=== PATIENT | male | born 1930 | race Caucasian/White ===

== ENCOUNTER 2017-03-05 11:00 | Inpatient (IN) | payer MEDICAID, OTHER ==
[~2017-03-05] VITALS: Ht 180.3 cm; Wt 99.9 kg
[~2017-03-05 11:00] MED LIST: AMLO5TAB2 PO; CALC625T29 PO; IBUP-30 PO; INSU100I14 SQ; INSU100I29 SQ; LISI10TA2 PO; MULT-35 PO; PEN1DIS.93 MC
--- OUTSIDE RECORDS SUMMARY | 2017-03-05 11:13 | XMS REPORT | Continuity of Care Document ---
Author Author [facility] Organization [facility] Address Unknown Phone Unavailable Allergies Active Description Code Type Severity Reaction Onset Reported/Identified Relationship to Patient Clinical Status Yes No Known Drug Allergies [id number] Drug Allergy Unknown N/A 07/30/2015 Medications There is no data. 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) 08/02/2015 BENJY CAVANAUGH MD, Ot E11.65 TYPE 2 DIABETES MELLITUS WITH HYPERGLYCE 08/02/2015 BENJY CAVANAUGH MD Ot I10 ESSENTIAL (PRIMARY) HYPERTENSION 08/02/2015 BENJY CAVANAUGH MD Ot L03.031 CELLULITIS OF RIGHT TOE 08/02/2015 BENJY CAVANAUGH MD, Ot 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 08/02/2015 BENJY CAVANAUGH MD Ot E11.65 TYPE 2 DIABETES MELLITUS WITH HYPERGLYCE 08/02/2015 BENJY CAVANAUGH MD Ot I10 ESSENTIAL (PRIMARY) HYPERTENSION 08/02/2015 BENJY CAVANAUGH MD Ot L03.031 CELLULITIS OF RIGHT TOE 08/02/2015 BENJY CAVANAUGH MD Ot 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 08/02/2015 BENJY CAVANAUGH MD Ot E11.65 TYPE 2 DIABETES MELLITUS WITH HYPERGLYCE 08/02/2015 BENJY CAVANAUGH MD Ot I10 ESSENTIAL (PRIMARY) HYPERTENSION 08/02/2015 BENJY CAVANAUGH MD Ot L03.031 CELLULITIS OF RIGHT TOE 08/02/2015 BENJY CAVANAUGH MD Ot 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 08/02/2015 BENJY CAVANAUGH MD Ot E11.65 TYPE 2 DIABETES MELLITUS WITH HYPERGLYCE 08/02/2015 BENJY CAVANAUGH MD Ot I10 ESSENTIAL (PRIMARY) HYPERTENSION 08/02/2015 BENJY CAVANAUGH MD Ot L03.031 CELLULITIS OF RIGHT TOE 08/02/2015 BENJY CAVANAUGH MD Ot 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 08/03/2015 BENJY CAVANAUGH MD Ot E11.65 TYPE 2 DIABETES MELLITUS WITH HYPERGLYCE 08/03/2015 BENJY CAVANAUGH MD Ot I10 ESSENTIAL (PRIMARY) HYPERTENSION 08/03/2015 BENJY CAVANAUGH MD Ot L03.031 CELLULITIS OF RIGHT TOE 08/03/2015 BENJY CAVANAUGH MD Ot 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 08/03/2015 BENJY CAVANAUGH MD Ot E11.65 TYPE 2 DIABETES MELLITUS WITH HYPERGLYCE 08/03/2015 BENJY CAVANAUGH MD Ot I10 ESSENTIAL (PRIMARY) HYPERTENSION 08/03/2015 BENJY CAVANAUGH MD Ot L03.031 CELLULITIS OF RIGHT TOE 08/03/2015 BENJY CAVANAUGH MD Ot 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 08/06/2015 BENJY CAVANAUGH MD Ot E11.40 TYPE 2 DIABETES MELLITUS WITH DIABETIC N 08/06/2015 BENJY CAVANAUGH MD Ot E11.65 TYPE 2 DIABETES MELLITUS WITH HYPERGLYCE 08/06/2015 BENJY CAVANAUGH MD Ot I10 ESSENTIAL (PRIMARY) HYPERTENSION 08/06/2015 BENJY CAVANAUGH MD Ot L03.031 CELLULITIS OF RIGHT TOE 08/06/2015 BENJY CAVANAUGH MD Ot 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 08/06/2015 BENJY CAVANAUGH MD Ot M86.171 OTHER ACUTE OSTEOMYELITIS, RIGHT ANKLE A 08/06/2015 BENJY CAVANAUGH MD Ot Z23 ENCOUNTER FOR IMMUNIZATION 08/06/2015 BENJY CAVANAUGH MD Ot 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 Encounters ACCT No. Visit Date/Time Discharge Status Pt. Type Provider Facility Loc./Unit Complaint [id number] 09/19/2015 08:59:00 09/19/2015 12:00:00 DIS Outpatient GODFREY CAIN MD [facility] WOUNDCARE [id number] 07/30/2015 10:18:00 08/06/2015 14:05:00 DIS Inpatient BENJY CAVANAUGH MD [facility] 4TH CELLULITIS R FOOT/LEG; SINUS TACHYCARDIA
--- OUTSIDE RECORDS SUMMARY | 2017-03-05 11:13 | XMS REPORT ---
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 Unknown Non Drug Allergy Nov, Unknown SOCIAL HISTORY No smoking Hx information available PLAN OF CARE VITAL SIGNS Height 71 in 2015-12-10 Weight 195 lbs 2015-12-10 Heart Rate 78 bpm 2015-12-10 Respiratory Rate 18 2015-12-10 BMI 27.19 kg/m2 2015-12-10 Blood pressure systolic 112 mmHg 2015-12-10 Blood pressure diastolic 70 mmHg 2015-12-10 MEDICATIONS Medication Instructions Dosage Frequency Start Date End Date Duration Status Amlodipine Besylate 5 mg Orally Once a day 1 tablet 24h Active Levemir FlexTouch 100 UNIT/ML Subcutaneous Once a day at hs. 20 UNIT Active Lisinopril 20 mg Orally Once a day 1 tablet 24h Active Ibuprofen 400 MG Orally Three times a day NEEDED 1 tablet Active NovoLog Flexpen 100 UNIT/ML Subcutaneous 3 times a day 4 Units 8h Active Multivitamin Adult Active RESULTS Name Result Date Reference Range A1C (IN HOUSE) 2015-12-10 A1C IN HOUSE 6.0 4.3 - 5.6 % Previous A1c n/a Lot [id number] Exp date 09/2017 PROCEDURES Procedure Date Ordered Related Diagnosis Body Site GLYCATED HEMOGLOBIN TEST Dec 10, 2015 Office Visit, Est Pt., Level 3 Dec 10, 2015 IMMUNIZATIONS No Known Immunizations
--- OUTSIDE RECORDS SUMMARY | 2017-03-05 11:13 | XMS REPORT ---
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 Active 012291915 Problem [facility] current use of insulin Z79.4 Active 799339610 Problem Essential hypertension I10 Active 72178273 ALLERGIES No Known Allergies SOCIAL HISTORY Never Assessed PLAN OF CARE Activity Details Follow Up 6 Months Reason: VITAL SIGNS Height 71 in 2016-04-18 Weight 196.6 lbs 2016-04-18 Temperature 97.8 degrees Fahrenheit 2016-04-18 Heart Rate 80 bpm 2016-04-18 Respiratory Rate 18 2016-04-18 BMI 27.42 kg/m2 2016-04-18 Blood pressure systolic 150 mmHg 2016-04-18 Blood pressure diastolic 70 mmHg 2016-04-18 MEDICATIONS Medication Instructions Dosage Frequency Start Date End Date Duration Status Lisinopril 20 mg Orally Once a day 1 tablet 24h Active Amlodipine Besylate 5 mg Orally Once a day 1 tablet 24h Active Multivitamin Adult Active Ibuprofen 400 MG Orally Three times a day NEEDED 1 tablet Active Levemir FlexTouch 100 UNIT/ML Subcutaneous Once a day at hs. 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
--- OUTSIDE RECORDS SUMMARY | 2017-03-05 11:13 | XMS REPORT ---
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 Active 346321840 Problem intermediate current use of insulin Z79.4 Active 458109647 Problem Essential hypertension I10 Active 25863358 ALLERGIES No Information SOCIAL HISTORY Never Assessed PLAN OF CARE VITAL SIGNS MEDICATIONS Medication Instructions Dosage Frequency Start Date End Date Duration Status Insulin Pen Needle 30G X 8 MM as directed July, Active RESULTS No Results PROCEDURES No Known procedures IMMUNIZATIONS No Known Immunizations MEDICAL (GENERAL) HISTORY Type Description Date Medical History Hypertension Medical History Type II Diabetes Surgical History 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
[2017-03-05] MEDS ORDERED: NS IV 1000 ML 1,000 ML IV ONE (11:36)
[2017-03-05 11:51] LABS: BASOPHILS # (AUTO) 0.1 10^3/uL (0.0-0.1); BASOPHILS % (AUTO) 0 % (0-10); EOSINOPHILS % (AUTO) 0 % (0-10); LYMPHOCYTES # (AUTO) 0.9 X 10^3 (1.0-4.0); LYMPHOCYTES % (AUTO) 6 % (12-44); MEAN CORPUSCULAR HEMOGLOBIN 26 PG (25-34); MEAN CORPUSCULAR HGB CONC 33 G/DL (32-36); MEAN CORPUSCULAR VOLUME 79 FL (80-99); MEAN PLATELET VOLUME 11.7 FL (7.4-10.4); MONOCYTES # (AUTO) 2.1 X 10^3 (0.0-1.0); MONOCYTES % (AUTO) 14 % (0-12); NEUTROPHILS # (AUTO) 12.6 X 10^3 (1.8-7.8); NEUTROPHILS % (AUTO) 80 % (42-75); PLATELET COUNT 278 10^3/uL (130-400); RED BLOOD COUNT 3.84 10^6/uL (4.35-5.85); RED CELL DISTRIBUTION WIDTH 20.8 % (10.0-14.5); WHITE BLOOD COUNT 15.7 10^3/uL (4.3-11.0)
[2017-03-05] MEDS ORDERED: LISI-552 PO ×2 (12:01→16:04)
[2017-03-05] MEDS ORDERED: FOLI1TAB24 PO (12:01)
[2017-03-05] MEDS ORDERED: FERR325T24 PO (12:01)
[2017-03-05] MEDS ORDERED: INSU100I14 SQ (12:01)
[2017-03-05 12:03] LABS: INR 1.2 (0.8-1.4); PROTHROMBIN TIME PATIENT 15.6 SEC (12.2-14.7)
[2017-03-05 12:06] LABS: ANISOCYTOSIS MARKED; BAND NEUTROPHILS 4 %; BASOPHILS % (MANUAL) 0 %; EOSINOPHILS % (MANUAL) 0 %; HYPOCHROMASIA SLIGHT; LYMPHOCYTES % (MANUAL) 2 %; NEUTROPHILS % (MANUAL) 78 %
[2017-03-05 12:09] LABS: ALANINE AMINOTRANSFERASE 36 U/L (0-55); ALBUMIN 3.5 GM/DL (3.2-4.5); AMYLASE 50 U/L (25-125); ANION GAP 14 MMOL/L (5-14); ASPARTATE AMINO TRANSFERASE 45 U/L (5-34); BILIRUBIN,TOTAL 0.7 MG/DL (0.1-1.0); BLOOD UREA NITROGEN 68 MG/DL (7-18); BUN/CREATININE RATIO 25; CALCIUM 8.3 MG/DL (8.5-10.1); CARBON DIOXIDE 17 MMOL/L (21-32); CHLORIDE 104 MMOL/L (98-107); CREATININE SERUM 2.71 MG/DL (0.60-1.30); GFR ESTIMATED 22; GLUCOSE 98 MG/DL (70-105); LIPASE 13 U/L (8-78); MAGNESIUM 2.2 MG/DL (1.8-2.4); POTASSIUM 3.5 MMOL/L (3.6-5.0); SODIUM 135 MMOL/L (135-145); TOTAL PROTEIN 7.3 GM/DL (6.4-8.2)
--- NOTE | 2017-03-05 12:20 | Diagnostic Imaging Report ---
INDICATION: Generalized weakness. EXAMINATION: Frontal chest obtained at 12:09 p.m. COMPARISON: 07/30/2015. FINDINGS: There is prominent cardiomegaly. There is central vascular prominence. There is some infiltrate in the right medial base. Left lung is otherwise clear. There is no pneumothorax or pleural fluid. Stable calcified granuloma in right midlung. IMPRESSION: Cardiomegaly and central vascular prominence. Mild infiltrate in right medial base. Followup is recommended. Dictated by: Dictated on workstation # [id number]
[2017-03-05 12:29] LABS: TROPONIN I < 0.30 NG/ML (<0.30)
[2017-03-05 12:51] LABS: BILIRUBIN,URINE NEGATIVE (NEGATIVE); KETONES,URINE 1+ (NEGATIVE); LEUKOCYTE ESTERASE ,URINE 3+ (NEGATIVE); NITRITE,URINE POSITIVE (NEGATIVE); PH,URINE 5 (5-9); PROTEIN,URINE 3+ (NEGATIVE); UROBILINOGEN,URINE NORMAL (NORMAL)
[2017-03-05 12:59] LABS: WBC,URINE TNTC /HPF
--- NOTE | 2017-03-05 13:14 | ED General ---
General Chief Complaint: Abdominal/GI Problems Stated Complaint: IRON BUILDUP Nursing Triage Note: pt reports diahrrea x 3 days before thursday. pt reprots he took antidiahreal medicine on thursday and the diahrrea stopped. pt reprots he has not been taking his insulin, iron, and ferrous sulfate. pt reports he has decreased appetite. Nursing Sepsis Screen: No Definite Risk Source of Information: Patient (LIMITED HISTORIAN, SOMEWHAT POOR MEMORY), Family (SECOND COUSIN IS WITH PT--HIS ONLY RELATIVE ) History of Present Illness Time Seen by Provider: 11:29 Initial Comments PT ARRIVES VIA POV FROM HOME--LIVES ALONE PT STATES "I'M NOT FEELING THAT GOOD" "I GOT THE BLAH'S" "MY MOUTH IS DRY" PT STATES HE HAS BEEN FEELING THIS WAY FOR 3 DAYS OR MORE--NOT SURE HOW LONG NO PAIN ANYWHERE NO NAUSEA/VOMITING NO FEVER/SWEATS/CHILLS HAS HAD GENERALIZED WEAKNESS NO COUGH, CHEST PAIN OR SHORTNESS OF BREATH PT HAS URINARY INCONTINENCE--UNSURE HOW MUCH OR HOW OFTEN HE HAS BEEN URINATING- -WEARS ADULT DIAPERS HAD 1/2 ARBY[employer]S SANDWICH YESTERDAY, OTHERWISE NO OTHER INTAKE SINCE THEN, AND NO SIGNIFICANT FLUID INTAKE EITHER. COUSIN STATES SHE SAW HIM ON THURSDAY,AND AT THAT TIME HE TOLD HER THAT HE HAD DIARRHEA FOR THE LAST 2 DAYS, PT DOES NOT RECALL HOW LONG HE HAS HAD DIARRHEA- STATES HIS STOOL WAS LOOSE THE LAST TIME HE WENT BUT NOT SURE WHEN THAT WAS. TOOK AN OVER THE COUNTER ANTIDIARRHEA MEDICATION X 1 DOSE --POSSIBLY A COUPLE OF DAYS AGO, AGAIN IS NOT SURE WHEN THAT WAS. PT STATES 8 DAYS AGO, HE WAS STARTED ON FOLIC ACID AND IRON BY THE CT. HAS NOT TAKEN ANY TODAY, AND DOES NOT THINK HE HAS TAKEN ANY FOR A FEW DAYS. PCP: DR. RIVERA AT [facility], ALSO GOES TO CT Allergies and Home Medications Allergies Coded Allergies: No Known Drug Allergies (Unverified , 03/05/17) Home Medications Acetaminophen 500 Mg Tablet, 1,000 MG PO TID, (Reported) TAKES 2 (500MG) TABLETS Amlodipine Besylate 5 Mg Tablet, 5 MG PO DAILY, (Reported) Ibuprofen 200 Mg Tablet, 400 MG PO HS, (Reported) TAKES 2 (200MG) TABLETS Ibuprofen 200 Mg Tablet, 200 MG PO 0800,1700, (Reported) Insulin Aspart 300 Units/3 Ml Solution, 4 UNITS SQ AC, (Reported) Insulin Detemir 100 Unit/1 Ml Insuln.pen, 20 UNIT SQ HS, (Reported) Lisinopril 20 Mg Tablet, 20 MG PO DAILY, (Reported) Loperamide HCl 2 Mg Tablet, PO UD PRN for DIARRHEA, (Reported) Multivits-Minerals/FA/Lycopene 1 Each Tablet, 0.5 TAB PO BID, (Reported) Constitutional: see HPI, No chills, No diaphoresis, No dizziness, No fever, malaise, weakness EENTM: no symptoms reported Respiratory: no symptoms reported, No cough, No short of breath Cardiovascular: no symptoms reported, No chest pain, No edema, No palpitations , No syncope, No vascular heart diseas Gastrointestinal: see HPI, No abdominal pain, No constipation, No diarrhea, loss of appetite, No nausea, No vomiting Genitourinary: see HPI, No dysuria, incontinence Musculoskeletal: no symptoms reported Skin: no symptoms reported Psychiatric/Neurological: No Symptoms Reported, Denies Headache, Denies Numbness, Denies Paresthesia, Denies Tingling, Denies Weakness Hematologic/Lymphatic: No Symptoms Reported Immunological/Allergic: no symptoms reported Past Dprcahb-Wtoblo-Wbgfmr Hx Patient Social History Alcohol Use: Denies Use Recreational Drug Use: No Smoking Status: Former Smoker Type Used: Cigarettes Former Smoker, Quit: Mar 02, 1984 Recent Foreign Travel: No Contact w/Someone Who Travel: No Recent Infectious Disease Expo: No Physical Abuse: No Sexual Abuse: No Mistreated: No Fear: No Surgeries 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) Surgeries: Adenoidectomy, Amputation, Orthopedic, Tonsillectomy Respiratory History of Respiratory Disorde: No Cardiovascular History of Cardiac Disorders: Yes Cardiac Disorders: Hypertension Neurological History of Neurological Disord: No Reproductive System Hx Reproductive Disorders: No Genitourinary History of Genitourinary Disor: No Gastrointestinal History of Gastrointestinal Di: No Musculoskeletal History of 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) Endocrine History of Endocrine Disorders: Yes Endocrine Disorders: Diabetes, Insulin dep HEENT History of HEENT Disorders: No Cancer History of Cancer: No Psychosocial History of Psychiatric Problem: No Suicide Risk Score: 0 Integumentary History of Skin or Integumenta: No Blood Transfusions History of Blood Disorders: No Family Medical History Family Medial History: Patient reports no known family medical history. Physical Exam Vital Signs Vital Sign - Last 12Hours 03/05/17 03/05/17 11:46 15:11 Temp 97.1 Pulse 121 Resp 20 B/P (MAP) 127/69 (88) Pulse Ox 94 FiO2 28 Capillary Refill : Less Than 3 Seconds General Appearance: No Apparent Distress, Obese HEENT: PERRL/EOMI, Other (VERY DRY ORAL MUCOSA) Neck: Normal Inspection Respiratory: Normal Breath Sounds, No Accessory Muscle Use, No Respiratory Distress Cardiovascular: No JVD, Systolic Murmur (3/6), Irregularly Irregular (FREQUENT PAC'S AND PVC'S ON MONITOR, WITH NSR), Tachycardia (IN 120'S ) Gastrointestinal: Normal Bowel Sounds, No Organomegaly, No Pulsatile Mass, Non Tender, Soft Back: No CVA Tenderness Extremity: Normal Range of Motion, Non Tender, No Calf Tenderness, No Pedal Edema Neurologic/Psychiatric: Alert, Oriented x3 (BUT LIMITED MEMORY), No Motor/ Sensory Deficits, Normal Mood/Affect, studio hand II-XII Norm as Tested Skin: Normal Color, Warm/Dry Focused Exam Evaluation Lactate Level Laboratory Tests 03/05/17 17:35: Lactic Acid Level 0.76 Lactic Acid Level Laboratory Tests Test 03/05/17 17:35 Lactic Acid Level 0.76 MMOL/L (0.50-2.00) Progress/Results/Core Measures Suspected Sepsis Recent Fever Within 48 Hours: No Infection Criteria Present: None New/Unexplained Altered Menta: No Sepsis Screen: No Definite Risk Sepsis Diagnosis: SIRS Temperature:97.1 Pulse: 121 Respiratory Rate: 20 Laboratory Tests 03/05/17 11:39: White Blood Count 15.7H Blood Pressure 127 /69 Mean: 88 Laboratory Tests 03/05/17 17:35: Lactic Acid Level 0.76 Laboratory Tests 03/05/17 11:39: Creatinine 2.71H, INR Comment 1.2, Platelet Count 278, Total Bilirubin 0.7 Results/Orders Lab Results Laboratory Tests Test 03/05/17 11:39 03/05/17 12:40 03/05/17 17:35 Range/Units White Blood Count 15.7 H 4.3-11.0 10^3/uL Red Blood Count 3.84 L 4.35-5.85 10^6/uL Hemoglobin 9.9 L 13.3-17.7 G/DL Hematocrit 30 L 40-54 % Mean Corpuscular Volume 79 L 80-99 FL Mean Corpuscular Hemoglobin 26 25-34 PG Mean Corpuscular Hemoglobin Concent 33 32-36 G/DL Red Cell Distribution Width 20.8 H 10.0-14.5 % Platelet Count 278 130-400 10^3/uL Mean Platelet Volume 11.7 H 7.4-10.4 FL Neutrophils (%) (Auto) 80 H 42-75 % Lymphocytes (%) (Auto) 6 L 12-44 % Monocytes (%) (Auto) 14 H 0-12 % Eosinophils (%) (Auto) 0 0-10 % Basophils (%) (Auto) 0 0-10 % Neutrophils # (Auto) 12.6 H 1.8-7.8 X 10^3 Lymphocytes # (Auto) 0.9 L 1.0-4.0 X 10^3 Monocytes # (Auto) 2.1 H 0.0-1.0 X 10^3 Eosinophils # (Auto) 0.0 0.0-0.3 10^3/uL Basophils # (Auto) 0.1 0.0-0.1 10^3/uL Neutrophils % (Manual) 78 % Lymphocytes % (Manual) 2 % Monocytes % (Manual) 16 % Eosinophils % (Manual) 0 % Basophils % (Manual) 0 % Band Neutrophils 4 % Nucleated Red Blood Cells 1 Hypochromasia SLIGHT Anisocytosis MARKED Prothrombin Time 15.6 H 12.2-14.7 SEC INR Comment 1.2 0.8-1.4 Activated Partial Thromboplast Time 40 H 24-35 SEC Sodium Level 135 135-145 MMOL/L Potassium Level 3.5 L 3.6-5.0 MMOL/L Chloride Level 104 98-107 MMOL/L Carbon Dioxide Level 17 L 21-32 MMOL/L Anion Gap 14 5-14 MMOL/L Blood Urea Nitrogen 68 H 7-18 MG/DL Creatinine 2.71 H 0.60-1.30 MG/DL Estimat Glomerular Filtration Rate 22 BUN/Creatinine Ratio 25 Glucose Level 98 70-105 MG/DL Glucometer 100 70-110 MG/DL Calcium Level 8.3 L 8.5-10.1 MG/DL Magnesium Level 2.2 1.8-2.4 MG/DL Total Bilirubin 0.7 0.1-1.0 MG/DL Aspartate Amino Transf (AST/SGOT) 45 H 5-34 U/L Alanine Aminotransferase (ALT/SGPT) 36 0-55 U/L Alkaline Phosphatase 27 L 40-136 U/L Troponin I < 0.30 <0.30 NG/ML Total Protein 7.3 6.4-8.2 GM/DL Albumin 3.5 3.2-4.5 GM/DL Amylase Level 50 25-125 U/L Lipase 13 8-78 U/L TSH [place] Testing 2.81 0.35-4.94 UIU/ML Urine Color YELLOW Urine Clarity VERY CLOUDY H Urine pH 5 5-9 Urine Specific [place] 1.015 L 1.016-1.022 Urine Protein 3+ H NEGATIVE Urine Glucose (UA) NEGATIVE NEGATIVE Urine Ketones 1+ H NEGATIVE Urine Nitrite POSITIVE H NEGATIVE Urine Bilirubin NEGATIVE NEGATIVE Urine Urobilinogen NORMAL NORMAL MG/DL Urine Leukocyte Esterase 3+ H NEGATIVE Urine RBC (Auto) 4+ H NEGATIVE Urine RBC 2-5 H /HPF Urine WBC TNTC H /HPF Urine Squamous Epithelial Cells NONE /HPF Urine Crystals NONE /LPF Urine Bacteria LARGE H /HPF Urine Casts NONE /LPF Urine Mucus NEGATIVE /LPF Urine Culture Indicated YES Lactic Acid Level 0.76 0.50-2.00 MMOL/L My Orders Orders - MARIETTA THOMAS DO Accucheck Stat ONCE (03/05/17 11:36) Saline Lock/Iv-Start (03/05/17 11:36) Ekg Tracing (03/05/17 11:36) O2 (03/05/17 11:36) Monitor-Rhythm Ecg Trace Only (03/05/17 11:36) Amylase (03/05/17 11:36) Cbc With Automated Diff (03/05/17 11:36) Comprehensive Metabolic Panel (03/05/17 11:36) Lipase (03/05/17 11:36) Magnesium (03/05/17 11:36) Protime With Inr (03/05/17 11:36) Partial Thromboplastin Time (03/05/17 11:36) Thyroid Analyzer (03/05/17 11:36) Troponin I (03/05/17 11:36) Ua Culture If Indicated (03/05/17 11:36) Chest 1 View, Ap/Pa Only (03/05/17 11:36) Saline Lock/Iv-Start (03/05/17 11:36) Ns Iv 1000 Ml (Sodium Chloride 0.9%) (03/05/17 11:36) Catheter(Urinary) Insert & Ass 03,15 (03/05/17 11:57) Manual Differential (03/05/17 11:39) Ct Head Wo (03/05/17 12:10) Urine Culture (03/05/17 12:40) 1/2 Ns W/Kcl 20 Meq/L (0.45% Sodium Chlo (03/05/17 13:15) Ceftriaxone Injection (Rocephin Injectio (03/05/17 13:45) Medications Given in ED Current Medications Medications Dose Ordered Sig/Janeen Route Start Time Stop Time Status Last Admin Dose Admin Sodium Chloride 1,000 ml @ 0 mls/hr Q0M ONCE IV 03/05/17 11:36 03/05/17 11:39 DC 03/05/17 11:45 0 MLS/HR Vital Signs/I&O Vital Sign - Last 12Hours 03/05/17 03/05/17 03/05/17 03/05/17 11:46 14:42 14:45 14:45 Temp 97.1 101.9 Pulse 121 117 126 Resp 20 18 22 B/P (MAP) 127/69 (88) 152/66 (94) Pulse Ox 94 16 97 O2 Delivery Nasal Cannula Nasal Cannula O2 Flow Rate 2.00 2.00 03/05/17 03/05/17 03/05/17 03/05/17 15:11 15:47 16:00 16:13 Temp 101.9 102.6 102.7 Pulse 126 113 Resp 22 B/P (MAP) 131/59 (83) Pulse Ox 97 96 O2 Delivery Nasal Cannula O2 Flow Rate 2.00 FiO2 28 03/05/17 03/05/17 03/05/17 03/05/17 16:13 16:38 16:43 17:00 Temp 102.7 102.0 101.9 Pulse 66 105 Resp 22 B/P (MAP) 112/55 (74) Pulse Ox 94 O2 Delivery Nasal Cannula O2 Flow Rate 2.00 03/05/17 03/05/17 03/05/17 03/05/17 17:45 18:39 19:12 19:40 Temp 100.9 100.3 Pulse 100 Pulse Ox 96 O2 Delivery Nasal Cannula O2 Flow Rate 2.00 Capillary Refill : Less Than 3 Seconds Blood Pressure Mean: 88 Point of Care Testing Finger Stick Blood Glucose: 100 Progress Note : Progress Note NO DETERIORATION IN PT'S CONDITION DURING ER STAY HEART RATE DOWN, BP REMAINED STABLE O2 SATS 92% ON ROOM AIR ON ARRIVAL--UP TO 94% ON 2L/NC Diagnostic Imaging Comments CXR--RIGHT MID LUNG INFILTRATE, PER RADIOLOGIST REPORT @ 1313 CT HEAD--NO ACUTE PROCESS, PER RADIOLOGIST REPORT AT 1331 Reviewed: Reviewed by Me Departure Communication (Admissions) Progress Notes 1335--MESSAGE RELAYED TO DR. MARTIN, WILL CALL BACK 1345--SPOKE WITH DR. MARTIN, ACCEPTS PT FOR ADMIT Impression Impression: Primary Impression: RLL pneumonia Additional Impressions: Dehydration Anemia Sepsis Disposition: ADMITTED INPATIENT Condition: Improved Admissions Decision to Admit Reason: Admit from ER (General) Decision to Admit/Date: Mar 05, 2017 Time/Decision to Admit Time: 13:35 Departure-Patient Inst. Referrals: DEJAH RIVERA MD (PCP) Primary Care Physician MARIETTA THOMAS DO Mar 05, 2017 13:14
[2017-03-05] MEDS ORDERED: 1/2 NS W/KCL 20 MEQ/L 1,000 ML IV SCH (13:15)
--- NOTE | 2017-03-05 13:15 | Diagnostic Imaging Report ---
PROCEDURE: CT head without contrast. TECHNIQUE: Multiple contiguous axial images were obtained through the brain without the use of intravenous contrast. INDICATION: Decreased appetite. FINDINGS: There is no intracranial hemorrhage, edema or mass effect. There is periventricular and deep white matter hypodensities compatible with chronic microvascular ischemic changes. No hydrocephalus. No extra-axial fluid collection seen. The calvarium appears grossly unremarkable. The orbits appear symmetric. There is a partial opacification of posterior right ethmoidal air cells. IMPRESSION: No acute process. Dictated by: Dictated on workstation # [id number]
[2017-03-05] MEDS ORDERED: cefTRIAXone INJECTION 1,000 MG in NS (IVPB) 50 ML IV ONE (13:45)
--- OUTSIDE RECORDS SUMMARY | 2017-03-05 14:06 | XMS REPORT | Continuity of Care Document ---
Author Author [facility] Organization [facility] Address Unknown Phone Unavailable Allergies Active Description Code Type Severity Reaction Onset Reported/Identified Relationship to Patient Clinical Status Yes No Known Drug Allergies [id number] Drug Allergy Unknown N/A 07/30/2015 Medications There [...] DIABETES MELLITUS WITH DIABETIC N 08/06/2015 BENJY CAVAANUGH MD Ot E11.65 TYPE 2 DIABETES MELLITUS [...] IMMUNIZATION 08/06/2015 BENJY CAVANAUGH MD Ot Z79.4 SOLVENT PLANT TREATER (CURRENT) USE OF INSULIN 09/19/2015 GODFREY CAIN [...] Procedures Code Description Performed By Performed On [id number] DETACHMENT AT RIGHT 3RD TOE, COMPLETE, O 08/03/2015 Results Test Result Range Capillary blood glucose measurement by glucometer (mass/volume) - 03/05/17 11: 39 Capillary blood glucose measurement by glucometer (mass/volume) 100 mg/dL 70-110 PT panel in platelet poor plasma by coagulation assay - 03/05/17 11:39 Prothrombin time (PT) in platelet poor plasma by coagulation assay 15.6 s 12.2-14.7 INR in platelet poor plasma or blood by coagulation assay 1.2 0.8-1.4 Activated partial thromboplastin time (aPTT) in platelet poor plasma bycoagulation assay - 03/05/17 11:39 Activated partial thromboplastin time (aPTT) in platelet poor plasma bycoagulation assay 40 s 24-35 Complete blood count (CBC) with automated white blood cell (WBC) differential - 03/05/17 11:39 Blood leukocytes automated count (number/volume) 15.7 10*3/uL 4.3-11.0 Blood erythrocytes automated count (number/volume) 3.84 10*6/uL 4.35-5.85 Venous blood hemoglobin measurement (mass/volume) 9.9 g/dL 13.3-17.7 Blood hematocrit (volume fraction) 30 % 40-54 Automated erythrocyte mean corpuscular volume 79 [foz_us] 80-99 Automated erythrocyte mean corpuscular hemoglobin (mass per erythrocyte) 26 pg 25-34 Automated erythrocyte mean corpuscular hemoglobin concentration measurement ( mass/volume) 33 g/dL 32-36 Automated erythrocyte distribution width ratio 20.8 % 10.0-14.5 Automated blood platelet count (count/volume) 278 10*3/uL 130-400 Automated blood platelet mean volume measurement 11.7 [foz_us] 7.4-10.4 Automated blood neutrophils/100 leukocytes 80 % 42-75 Automated blood lymphocytes/100 leukocytes 6 % 12-44 Blood monocytes/100 leukocytes 14 % 0-12 Automated blood eosinophils/100 leukocytes 0 % 0-10 Automated blood basophils/100 leukocytes 0 % 0-10 Blood neutrophils automated count (number/volume) 12.6 10*3 1.8-7.8 Blood lymphocytes automated count (number/volume) 0.9 10*3 1.0-4.0 Blood monocytes automated count (number/volume) 2.1 10*3 0.0-1.0 Automated eosinophil count 0.0 10*3/uL 0.0-0.3 Automated blood basophil count (count/volume) 0.1 10*3/uL 0.0-0.1 Blood manual differential performed detection - 03/05/17 11:39 Blood monocytes/100 leukocytes 16 % NRG Manual blood segmented neutrophils/100 leukocytes 78 % NRG Blood band neutrophils/100 leukocytes 4 % NRG Manual blood lymphocytes/100 leukocytes 2 % NRG Manual eosinophils/100 leukocytes in nose 0 % NRG Manual blood basophils/100 leukocytes 0 % NRG Blood anisocytosis detection by light microscopy MARKED NRG Manual blood nucleated erythrocytes/100 leukocytes ratio 1 NRG Blood hypochromia detection by light microscopy SLIGHT NRG Comprehensive metabolic panel - 03/05/17 11:39 Serum or plasma sodium measurement (moles/volume) 135 mmol/L 135-145 Serum or plasma potassium measurement (moles/volume) 3.5 mmol/L 3.6-5.0 Serum or plasma chloride measurement (moles/volume) 104 mmol/L 98-107 Carbon dioxide 17 mmol/L 21-32 Serum or plasma anion gap determination (moles/volume) 14 mmol/L 5-14 Serum or plasma urea nitrogen measurement (mass/volume) 68 mg/dL 7-18 Serum or plasma creatinine measurement (mass/volume) 2.71 mg/dL 0.60-1.30 Serum or plasma urea nitrogen/creatinine mass ratio 25 NRG Serum or plasma creatinine measurement with calculation of estimated glomerular filtration rate 22 NRG Serum or plasma glucose measurement (mass/volume) 98 mg/dL 70-105 Serum or plasma calcium measurement (mass/volume) 8.3 mg/dL 8.5-10.1 Serum or plasma total bilirubin measurement (mass/volume) 0.7 mg/dL 0.1-1.0 Serum or plasma alkaline phosphatase measurement (enzymatic activity/volume) 27 U/L 40-136 Serum or plasma aspartate aminotransferase measurement (enzymatic activity/ volume) 45 U/L 5-34 Serum or plasma alanine aminotransferase measurement (enzymatic activity/volume ) 36 U/L 0-55 Serum or plasma protein measurement (mass/volume) 7.3 g/dL 6.4-8.2 Serum or plasma albumin measurement (mass/volume) 3.5 g/dL 3.2-4.5 Magnesium - 03/05/17 11:39 Magnesium 2.2 mg/dL 1.8-2.4 Serum or plasma troponin i.cardiac measurement (mass/volume) - 03/05/17 11:39 Serum or plasma troponin i.cardiac measurement (mass/volume) < ng/ mL <0.30 Serum or plasma amylase measurement (enzymatic activity/volume) - 03/05/17 11: 39 Serum or plasma amylase measurement (enzymatic activity/volume) 50 U /L 25-125 Lipase - 03/05/17 11:39 Lipase 13 U/L 8-78 Serum or plasma thyrotropin measurement by detection limit <=0.05 miu/l (units/ volume) - 03/05/17 11:39 Serum or plasma thyrotropin measurement by detection limit <=0.05 miu/l (units/ volume) 2.81 u[iU]/mL 0.35-4.94 Complete urinalysis with reflex to culture - 03/05/17 12:40 Urine color determination YELLOW NRG Urine clarity determination VERY CLOUDY NRG Urine pH measurement by test strip 5 5-9 Specific gravity of urine by test strip 1.015 1.016- 1.022 Urine protein assay by test strip, semi-quantitative 3+ NEGATIVE Urine glucose detection by automated test strip NEGATIVE NEGATIVE Erythrocytes detection in urine sediment by light microscopy 4+ NEGATIVE Urine ketones detection by automated test strip 1+ NEGATIVE Urine nitrite detection by test strip POSITIVE NEGATIVE Urine total bilirubin detection by test strip NEGATIVE NEGATIVE Urine urobilinogen measurement by automated test strip (mass/volume) NORMAL NORMAL Urine leukocyte esterase detection by dipstick 3+ NEGATIVE Automated urine sediment erythrocyte count by microscopy (number/high power field) [HPF] NRG Automated urine sediment leukocyte count by microscopy (number/high power field ) TNTC NRG Bacteria detection in urine sediment by light microscopy LARGE NRG Squamous epithelial cells detection in urine sediment by light microscopy NONE NRG Crystals detection in urine sediment by light microscopy NONE NRG Casts detection in urine sediment by light microscopy NONE NRG Mucus detection in urine sediment by light microscopy NEGATIVE NRG Complete urinalysis with reflex to culture YES NRG Encounters ACCT No. Visit Date/Time Discharge Status Pt. Type Provider Facility Loc./Unit Complaint [id number] 09/19/2015 08:59:00 09/19/2015 12:00:00 DIS Outpatient PAYTON LONG, GODFREY Ibrahim [facility] WOUNDCARE [id number] 07/30/2015 10:18:00 08/06/2015 14:05:00 DIS Inpatient MAO LONG, BENJY Gonzalez [facility] 4TH CELLULITIS R FOOT/LEG; SINUS TACHYCARDIA [id number] 03/05/2017 11:49:00 Document Registration
[2017-03-05 14:45] VITALS: BP 152/66
[2017-03-05 15:11] VITALS: BP 152/66
[2017-03-05] MEDS ORDERED: CATHETER FLUSH 10 ML SYR IV PRN (15:15)
[2017-03-05] MEDS ORDERED: RT-ALBUTEROL/IPRATROPIUM 3 ML (DUONEB) VIAL INH PRN (15:15)
[2017-03-05] MEDS ORDERED: AZITHROMYCIN 500 MG/NS 250 ML IVPB IV NR ×2 (15:15)
[2017-03-05] MEDS: D5 1/2 NS W/KCL 20 MEQ/L 1,000 ML IV SCH ×2 (15:26→22:49)
[2017-03-05] MEDS: ACETAMINOPHEN 325 MG TABLET/CAPLET (TYLENOL) PO PRN ×2 (15:47→22:09)
[2017-03-05 16:00] VITALS: BP 131/59
[2017-03-05] MEDS ORDERED: AMLO5TAB2 PO (16:04)
[2017-03-05] MEDS ORDERED: INSU100I29 SQ (16:04)
[2017-03-05] MEDS ORDERED: ACET-2267 PO (16:04)
[2017-03-05] MEDS ORDERED: MULT-851 PO (16:05)
[2017-03-05] MEDS ORDERED: IBUP-30 PO (16:05)
[2017-03-05] MEDS ORDERED: LOPE2TAB34 PO (16:05)
[2017-03-05 17:00] VITALS: BP 112/55
[2017-03-05] MEDS: RT-ALBUTEROL/IPRATROPIUM 3 ML (DUONEB) VIAL INH SCH ×2 (19:39→22:03)
[2017-03-05 20:00] VITALS: BP 125/58
[2017-03-05 22:00] VITALS: BP 164/70
[2017-03-05] MEDS ORDERED: IBUPROFEN TABLET 200 MG TAB PO ONE (22:30)
[2017-03-06] VITALS (18 sets, daily range): BP systolic 93–139; BP diastolic 47–67
[2017-03-06] MEDS: RT-ALBUTEROL/IPRATROPIUM 3 ML (DUONEB) VIAL INH SCH ×2 (01:44→07:17)
[2017-03-06] MEDS: D5 1/2 NS W/KCL 20 MEQ/L 1,000 ML IV SCH (05:39)
[2017-03-06 07:45] LABS: BASOPHILS # (AUTO) 0.1 10^3/uL (0.0-0.1); BASOPHILS % (AUTO) 1 % (0-10); EOSINOPHILS % (AUTO) 0 % (0-10); LYMPHOCYTES # (AUTO) 0.9 X 10^3 (1.0-4.0); LYMPHOCYTES % (AUTO) 6 % (12-44); MEAN CORPUSCULAR HEMOGLOBIN 26 PG (25-34); MEAN CORPUSCULAR HGB CONC 31 G/DL (32-36); MEAN CORPUSCULAR VOLUME 81 FL (80-99); MEAN PLATELET VOLUME 12.5 FL (7.4-10.4); MONOCYTES # (AUTO) 1.4 X 10^3 (0.0-1.0); MONOCYTES % (AUTO) 9 % (0-12); NEUTROPHILS # (AUTO) 13.6 X 10^3 (1.8-7.8); NEUTROPHILS % (AUTO) 85 % (42-75); PLATELET COUNT 245 10^3/uL (130-400); RED BLOOD COUNT 3.22 10^6/uL (4.35-5.85); RED CELL DISTRIBUTION WIDTH 21.4 % (10.0-14.5); WHITE BLOOD COUNT 15.9 10^3/uL (4.3-11.0)
[2017-03-06 07:59] LABS: ALBUMIN 2.9 GM/DL (3.2-4.5); BILIRUBIN,TOTAL 0.5 MG/DL (0.1-1.0); CALCIUM 7.1 MG/DL (8.5-10.1); CREATININE SERUM 2.7 MG/DL (0.60-1.30); POTASSIUM 3.5 MMOL/L (3.6-5.0)
[2017-03-06] MEDS ORDERED: AZITHROMYCIN 250 MG TAB (ZITHROMAX) PO SCH (09:00)
[2017-03-06] MEDS ORDERED: RT-ALBUTEROL SULF 2.5 MG/3 ML PRE-MIX VIAL INH SCH (09:45)
[2017-03-06] MEDS ORDERED: PIPERACILLIN SODIUM/TAZOBACTAM 4.5 GM in NS (IVPB) 100 ML IV NR (11:02)
--- NOTE | 2017-03-06 11:03 | History & Physical-Hospitalist ---
HPI History of Present Illness: HPI/Chief Complaint CC: Wheezing and unable to eat and drink HPI: This is an 86-year-old white male clinic patient a [facility] with a past medical history of diabetes and hypertension the presents to the emergency room after unable to tolerate oral intake for the past several days with nausea. He was found to have creatinine of 2.7 and dehydrated on clinical exam and bilateral pneumonia so he was placed on Rocephin and Zithromax IV fluids and oxygen supplementation along with nebulizer treatments and was admitted to fourth floor. I visited with the patient this morning he is requiring Vapotherm and wheezing on exam and just overall appears to be declining so as a precaution I am sending him up to cardiac stepdown unit obtaining ABG repeat chest x-ray checking BNP ordering echocardiogram and consulting cardiology. I have held all of his home medications because of mild hypotension that I had given IV fluid resuscitation for last night. Overall he appears to have a very poor prognosis just overall decline status and we are obtaining his living well and whether or not he is a full code or DO NOT RESUSCITATE patient. Source: patient Exam Limitations: clinical condition Date Seen 03/06/17 Time Seen by Provider: 09:45 Attending Physician Chikis Todd DO PCP Nehemiah Lopez MD Referring Physician Date of Admission Mar 05, 2017 at 13:35 Home Medications & Allergies Home Medications Reviewed patient Home Medication Reconciliation Form Allergies Allergies Coded Allergies No Known Drug Allergies (Efrdrgqjbr09/21/17) Past Poyjbnm-Qorhbe-Rrqrxs Hx Patient Social History Marrital Status: single Employed/Student: retired Alcohol Use: Denies Use Recreational Drug Use: No Smoking Status: Former Smoker Former Smoker, Quit: Mar 02, 1984 Type Used: Cigarettes Physical Abuse Screen: No Sexual Abuse: No Recent Foreign Travel: No Contact w/other who traveled: No Recent Hopitalizations: No Recent Infectious Disease Expo: No Immunizations Up To Date Date of Pneumonia Vaccine: Dec 14, 2016 Date of Influenza Vaccine: Dec 14, 2016 Seasonal Allergies Seasonal Allergies: No Surgeries Yes (AMPUTATION OF RIGHT GREAT TOE) Adenoidectomy, Amputation, Orthopedic, Tonsillectomy Respiratory No Cardiovascular Yes Hypertension Neurological No Reproductive System Hx Reproductive Disorders: No Genitourinary No Gastrointestinal No Musculoskeletal Yes (RIGHT GREAT TOE AMPUTATED) Endocrine History of Endocrine Disorders: Yes Endocrine Disorders: Diabetes, Insulin dep Are Your Blood Sugars Over 250: No HEENT History of HEENT Disorders: No Cancer No Psychosocial History of Psychiatric Problem: No Integumentary History of Skin or Integumenta: No Blood Transfusions History of Blood Disorders: No Family Medical History Family Hx: Cardiovascular disease 19 MOTHER Diabetes mellitus 19 MOTHER Myocardial infarction 19 MOTHER Review of Systems Constitutional: see HPI, chills, fever, malaise, weakness EENTM: no symptoms reported Respiratory: cough, short of breath, wheezing Cardiovascular: no symptoms reported Gastrointestinal: loss of appetite, nausea, vomiting Genitourinary: decreased output Musculoskeletal: back pain Skin: no symptoms reported Psychiatric/Neurological: Anxiety, Depressed All Other Systems Reviewed Negative Unless Noted: Yes Physical Exam Physical Exam Vital Signs Vital Sign - Last 12Hours 03/05/17 03/05/17 11:46 15:11 Temp 97.1 Pulse 121 Resp 20 B/P (MAP) 127/69 (88) Pulse Ox 94 FiO2 28 Capillary Refill : Less Than 3 Seconds General Appearance: WD/WN, Chronically ill, Mild Distress (due to tachypnea) Eyes: Bilateral Eye Normal Inspection, Bilateral Eye PERRL HEENT: PERRL/EOMI, Normal ENT Inspection, Pharynx Normal Neck: Full Range of Motion, Normal Inspection, Non Tender, Supple, Carotid Bruit Respiratory: Chest Non Tender, Accessory Muscle Use (mild), Crackles, Decreased Breath Sounds, Rales, Respiratory Distress (mild), Wheezing Cardiovascular: Regular Rate, Rhythm, No Edema, No Gallop, No JVD, No Murmur, Normal Peripheral Pulses Gastrointestinal: Normal Bowel Sounds, No Organomegaly, No Pulsatile Mass, Non Tender, Soft Back: Normal Inspection, No CVA Tenderness, No Vertebral Tenderness Extremity: Normal Capillary Refill, Normal Inspection, Normal Range of Motion, Non Tender, No Calf Tenderness, No Pedal Edema Neurologic/Psychiatric: Alert, Oriented x3, No Motor/Sensory Deficits, Normal Mood/Affect Skin: Normal Color, Warm/Dry Lymphatic: No Adenopathy Results Results/Procedures Lab Laboratory Tests 03/05/17 11:39 03/06/17 07:17 Assessment/Plan Admission Diagnosis Assessment: Acute respiratory failure that has evolved since overnight admission due to bilateral pneumonia and likely volume overload Acute on chronic renal failure creatinine 2.7 nonoliguric History of hypertension as an outpatient but noted hypotension during hospital stay last night given IV fluid boluses that improved status Diabetes mellitus 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 Green cardiology Hold all home meds Sliding scale Vapotherm Assessed living will Clinical Quality Measures DVT/VTE Risk/Contraindication: Risk Factor Score Per Nursin RFS Level Per Nursing on Admit: 4+=Very High CHIKIS TODD DO Mar 06, 2017 11:03
[2017-03-06] MEDS ORDERED: CATHETER FLUSH 10 ML SYR IV PRN (11:15)
[2017-03-06] MEDS: NS IV 1000 ML 1,000 ML IV SCH ×2 (11:39→23:41)
[2017-03-06] MEDS: SIMETHICONE 80 MG (MYLICON) CHEW PO SCH ×3 (11:49→23:41)
[2017-03-06] MEDS: ACETAMINOPHEN 325 MG TABLET/CAPLET (TYLENOL) PO PRN ×2 (11:49→23:47)
--- NOTE | 2017-03-06 11:56 | Diagnostic Imaging Report ---
EXAMINATION: Portable upright radiograph of the chest. INDICATION: Shortness of breath. FINDINGS: There are increasing patchy infiltrates in the lung bases and right perihilar region and suggestion of increased vascular congestion. The heart size is borderline. There are probable tiny bilateral effusions. No pneumothorax. IMPRESSION: Increasing vascular congestion and bibasilar patchy infiltrates or atelectasis. Dictated by: Dictated on workstation # [id number]
--- NOTE | 2017-03-06 12:28 | Consultation-Cardiology ---
HPI-Cardiology Cardiology Consultation: Date of Consultation 03/06/17 Time Seen by Provider: 12:10 Date of Admission 03-05-17 Attending Physician Chikis Martin DO Admitting Physician Nehemiah Lopez MD Consulting Physician Fran Green MD HPI: Chief Complaint: Tachycardia Dyspnea Mr. Walls is an 86 year old male who has been transferred to ICU 4 from 4th medical floor d/t increasing dyspnea. He reports approx 2 days ago he began having diarrhea at home. He reports increasing generalized weakness and not feeling well. He states the diarrhea has improved. However, this morning he began to feel increasingly SOB and has had a dry cough. He reports he continues to feel short of breath, but it is somewhat better. No c/o CP, palpitations. No c/o LE edema. He states he lives at home alone and is a diabetic. He states he had not been taking his diabetic medications for a few days. Reason is unclear. Review of Systems-Cardiology Review of Systems Constitutional: malaise Eyes: No blurred vision Ears/Nose/Throat: No nasal drainage, No throat pain Respiratory: As described under HPI Cardiovascular: As described under HPI Gastrointestinal: diarrhea, poor appetite Genitourinary: incontinence (chronic) Musculoskeletal: joint pain (chronic) Skin: No rash, No ulcerations Psychiatric/Neurological: No syncope Hematologic: No bleeding abnormalities All Other Systems Reviewed Negative Unless Noted: Yes PAS-Tmqpfo-Zphugx Hx Patient Social History Marrital Status: single Employed/Student: retired Alcohol Use: Denies Use Recreational Drug Use: No Smoking Status: Former Smoker Type Used: Cigarettes Recent Foreign Travel: No Recent Infectious Disease Expo: No Physical Abuse Screen: No Sexual Abuse: No Immunizations Up To Date Date of Pneumonia Vaccine: Dec 14, 2016 Date of Influenza Vaccine: Dec 14, 2016 Past Medical History PMH As described under Assessment. Family Medical History Family Medical History: He reports his mother with heart attack at age 65. He repors she had DM as well. Family History: Cardiovascular disease 19 MOTHER Diabetes mellitus 19 MOTHER Myocardial infarction 19 MOTHER Allergies and Home Medications Allergies Coded Allergies: No Known Drug Allergies (Unverified , 03/05/17) Home Medications Acetaminophen 500 Mg Tablet, 1,000 MG PO TID, (Reported) TAKES 2 (500MG) TABLETS Amlodipine Besylate 5 Mg Tablet, 5 MG PO DAILY, (Reported) Ibuprofen 200 Mg Tablet, 400 MG PO HS, (Reported) TAKES 2 (200MG) TABLETS Ibuprofen 200 Mg Tablet, 200 MG PO 0800,1700, (Reported) Insulin Aspart 300 Units/3 Ml Solution, 4 UNITS SQ AC, (Reported) Insulin Detemir 100 Unit/1 Ml Insuln.pen, 20 UNIT SQ HS, (Reported) Lisinopril 20 Mg Tablet, 20 MG PO DAILY, (Reported) Loperamide HCl 2 Mg Tablet, PO UD PRN for DIARRHEA, (Reported) Multivits-Minerals/FA/Lycopene 1 Each Tablet, 0.5 TAB PO BID, (Reported) Physical Exam-Cardiology Physical Exam Vital Signs/I&O Vital Sign - Last 12Hours 03/06/17 03/06/17 03/06/17 03/06/17 07:17 07:45 11:15 11:20 Temp 101.3 Pulse 117 B/P (MAP) 139/64 (89) Pulse Ox 97 97 O2 Delivery Vapotherm Nasal Cannula Vapotherm Vapotherm O2 Flow Rate 18.00 2.00 18.00 45.00 18.00 FiO2 45 45 03/06/17 03/06/17 03/06/17 03/06/17 11:45 11:49 12:00 12:15 Temp 101.3 Pulse 117 116 118 B/P (MAP) 101/61 (74) 119/58 (78) 104/61 (75) 03/06/17 03/06/17 03/06/17 03/06/17 12:26 12:26 13:00 13:00 Temp 101.3 101.3 Pulse 105 107 B/P (MAP) 102/57 (72) 03/06/17 03/06/17 03/06/17 03/06/17 13:14 13:40 14:00 14:15 Temp 101.0 101.0 Pulse 106 102 Resp 24 30 B/P (MAP) 100/52 (68) 114/65 (81) Pulse Ox 97 99 99 O2 Delivery Vapotherm Vapotherm Vapotherm O2 Flow Rate 45.00 45.00 18.00 18.00 18.00 FiO2 45 03/06/17 03/06/17 03/06/17 03/06/17 14:19 14:24 15:00 16:00 Temp 99.8 Pulse 104 112 Resp 28 32 B/P (MAP) 93/47 (62) 116/63 (80) Pulse Ox 95 98 O2 Delivery Vapotherm O2 Flow Rate 45.00 45.00 45.00 10.00 10.00 10.00 03/06/17 03/06/17 16:55 17:00 Temp 98.8 Pulse 110 Resp 32 B/P (MAP) 118/63 (81) Pulse Ox 98 O2 Flow Rate 45.00 10.00 Intake and Output 03/06/17 00:00 Intake Total 3530 ml Output Total 775 ml Balance 2755 ml Capillary Refill : Less Than 3 Seconds Constitutional: appears stated age, AAO x 3, well-nourished HEENT: PERRL, hearing is well preserved Neck: No carotid bruit, carotid pulses are 2 + bilaterally Respiratory: No accessory muscle use, No respiratory distress, chest expansion is symmetric, chest is bilaterally symmetric, crackles (lower lobes), other ( dyspnea with conversation) Gastrointestinal: No tender, soft, audible bowel sounds Rectal: deferred Extremities: no lower extremity edema bilateral Neurologic/Psychiatric: grossly intact Skin: No rash, No ulcerations Data Review Labs Laboratory Tests 03/05/17 17:35: Lactic Acid Level 0.76 03/06/17 07:17: White Blood Count 15.9H, Red Blood Count 3.22L, Hemoglobin 8.2L, Hematocrit 26L , Mean Corpuscular Volume 81, Mean Corpuscular Hemoglobin 26, Mean Corpuscular Hemoglobin Concent 31L, Red Cell Distribution Width 21.4H, Platelet Count 245, Mean Platelet Volume 12.5H, Neutrophils (%) (Auto) 85H, Lymphocytes (%) (Auto) 6L, Monocytes (%) (Auto) 9, Eosinophils (%) (Auto) 0, Basophils (%) (Auto) 1, Neutrophils # (Auto) 13.6H, Lymphocytes # (Auto) 0.9L, Monocytes # (Auto) 1.4H, Eosinophils # (Auto) 0.0, Basophils # (Auto) 0.1, D-Dimer 5.41H, Sodium Level 132L, Potassium Level 3.5L, Chloride Level 105, Carbon Dioxide Level 14L, Anion Gap 13, Blood Urea Nitrogen 58H, Creatinine 2.70H, Estimat Glomerular Filtration Rate 23, BUN/Creatinine Ratio 21, Glucose Level 393H, Calcium Level 7.1L, Total Bilirubin 0.5, Aspartate Amino Transf (AST/SGOT) 30, Alanine Aminotransferase (ALT/SGPT) 31, Alkaline Phosphatase 28L, Total Protein 6.0L, Albumin 2.9L, Smear Scan YES 03/06/17 12:45: Blood Gas Puncture Site R RAD, Blood Gas Patient Temperature 101.4, Arterial Blood pH 7.34*L, Arterial Blood Partial Pressure CO2 27L, Arterial Blood Partial Pressure O2 96H, Arterial Blood HCO3 14*L, Arterial Blood Total CO2 14.4L, Arterial Blood Oxygen Saturation 98, Arterial Blood Base Excess -10.7L, Steve Test YES-POS, Blood Gas Ventilator Setting NO, Blood Gas Inspired Oxygen 40% 03/06/17 13:52: Lactic Acid Level 1.61 03/06/17 16:51: Glucometer 247H Microbiology 03/05/17 Gram Stain - Final, Resulted 03/05/17 Sputum Culture - Preliminary, Resulted Usual/normal lauren isolated. 03/05/17 Urine Culture - Preliminary, Resulted Klebsiella Pneumoniae Radiology NAME: MAGDA WALLS MED REC#: [id number] PT STATUS: ADM IN : 1930 PHYSICIAN: CHIKIS MARTIN DO ADMIT DATE: 03/05/17/ICU Draft Date of Exam:03/06/17 CHEST 1 VIEW, AP/PA ONLY EXAMINATION: Portable upright radiograph of the chest. INDICATION: Shortness of breath. FINDINGS: There are increasing patchy infiltrates in the lung bases and right perihilar region and suggestion of increased vascular congestion. The heart size is borderline. There are probable tiny bilateral effusions. No pneumothorax. IMPRESSION: Increasing vascular congestion and bibasilar patchy infiltrates or atelectasis. Dictated on workstation # [id number] Dict: 03/06/17 1151 Trans: 03/06/17 1156 [facility] [id number] Interpreted by: GISSEL MARTIN MD Electronically signed by: A/P-Cardiology Assessment/Admission Diagnosis Probable septicemia with borderline septic shock Echo of 03/06/17: Normal LVEF (55-60%), normal PASP, no significant valvular heart disease Pneumonia - management per medical services UTI - management per medical services Renal insufficiency - likely acute on chronic; chronic d/t diabetic nephropathy ; acute d/t volume depletion Tachycardia - likely d/t fever DM 2 - management per medical services HTN - currently somewhat low BP Anemia of undetermined etiology - medical services managing Chronic urinary incontinence Chronic NSAID use H/O Right great toe amputation in 2016 Discussion and Recomendations Complex management issue Probable sepsis Pneumonia with acute respiratory distress being managed by medical services UTI - management per medical services Acute on chronic renal insufficiency likely d/t diabetic nephropathy, chronic NSAID use and volume depletion - hydrate Echocardiogram to evaluate structure and function today H/O hypertension, currently hypotensive possibly d/t sepsis Tachycardia likely d/t fever and sepsis Advise cessation of NSAIDs Hold CLEMENCIA (-) for now d/t renal function Monitor lab closely Anemia of undetermined etiology - occult stools Replace potassium Treatment of diabetes is per medical services Further rec will be based on his hospital course We would like to thank medical services for this consult This consult is being scribed by Henry Bartlett APRN on behalf of Dr. Green after discussion regarding plan of care Clinical Quality Measures DVT/VTE Risk/Contraindication: Risk Factor Score Per Nursin RFS Level Per Nursing on Admit: 4+=Very High Physician Assessment Physician Assessment No cp or palp or syncope or swelling. Has had gen malaise Lungs: good air entry, but diminished at the bases Cor: reg Ext: no c/c/e Echo: see above A&R * As documented in our note above that I updated (italics) and as noted below * Continue treatment of systemic infection and septicemia * iv fluids * Monitor labs * I spoke with him and his fam JENNIFER BARTLETT MARKETING CAMPAIGN ANALYST Mar 06, 2017 12:28 FRAN GREEN MD [facility] Mar 06, 2017 17:18
[2017-03-06 12:54] LABS: ABG BASE EXCESS -10.7 MMOL/L (-2.5-2.5); ABG OXYGEN SATURATION 98 % (94-100); ABG PCO2 27 MMHG (35-45); ABG PO2 96 MMHG (79-93); ABG TCO2 14.4 MMOL/L (21.0-31.0)
[2017-03-06 12:57] LABS: ABG HCO3 14 MMOL/L (23-27); ABG PH 7.34 (7.37-7.43); ALLENS TEST YES-POS
[2017-03-06 12:58] LABS: PATIENT TEMP 101.4
[2017-03-06] MEDS ORDERED: IBUPROFEN TABLET 200 MG TAB PO NR (13:30)
[2017-03-06] MEDS: RT-LEVALBUTEROL (XOPENEX) 1.25 MG/3 ML NEB NON-FORMULARY INH SCH ×2 (14:15→21:08)
[2017-03-06] MEDS: PIPERACILLIN SODIUM/TAZOBACTAM 4.5 GM in NS (IVPB) 100 ML IV SCH ×2 (17:05→23:41)
[2017-03-06] MEDS: inSUlin ASPART (NovoLOG) 1 UNIT/0.01 ML (CHARGE PER UNIT) SC SCH ×2 (17:05→23:40)
[2017-03-06] MEDS: guaiFENesin/DM (ROBITUSSIN DM) 10 ML UDC PO PRN (23:41)
[2017-03-07] VITALS (10 sets, daily range): BP systolic 88–159; BP diastolic 63–92
[2017-03-07] MEDS: RT-LEVALBUTEROL (XOPENEX) 1.25 MG/3 ML NEB NON-FORMULARY INH SCH ×4 (03:12→20:23)
[2017-03-07 04:14] LABS: BASOPHILS # (AUTO) 0.1 10^3/uL (0.0-0.1); BASOPHILS % (AUTO) 0 % (0-10); EOSINOPHILS % (AUTO) 0 % (0-10); LYMPHOCYTES # (AUTO) 0.7 X 10^3 (1.0-4.0); LYMPHOCYTES % (AUTO) 3 % (12-44); MEAN CORPUSCULAR HEMOGLOBIN 25 PG (25-34); MEAN CORPUSCULAR HGB CONC 32 G/DL (32-36); MEAN CORPUSCULAR VOLUME 80 FL (80-99); MEAN PLATELET VOLUME 12.6 FL (7.4-10.4); MONOCYTES # (AUTO) 2.1 X 10^3 (0.0-1.0); MONOCYTES % (AUTO) 10 % (0-12); NEUTROPHILS # (AUTO) 17.8 X 10^3 (1.8-7.8); NEUTROPHILS % (AUTO) 86 % (42-75); PLATELET COUNT 270 10^3/uL (130-400); RED BLOOD COUNT 3.18 10^6/uL (4.35-5.85); RED CELL DISTRIBUTION WIDTH 21.3 % (10.0-14.5); WHITE BLOOD COUNT 20.6 10^3/uL (4.3-11.0)
[2017-03-07 04:39] LABS: ALBUMIN 2.7 GM/DL (3.2-4.5); BAND NEUTROPHILS 4 %; BASOPHILS % (MANUAL) 0 %; BILIRUBIN,TOTAL 0.7 MG/DL (0.1-1.0); CALCIUM 7.3 MG/DL (8.5-10.1); CREATININE SERUM 2.9 MG/DL (0.60-1.30); EOSINOPHILS % (MANUAL) 0 %; LYMPHOCYTES % (MANUAL) 1 %; MAGNESIUM 2.1 MG/DL (1.8-2.4); NEUTROPHILS % (MANUAL) 89 %; POLYCHROMASIA SLIGHT; POTASSIUM 3.8 MMOL/L (3.6-5.0); TOTAL PROTEIN 6.1 GM/DL (6.4-8.2)
[2017-03-07 04:40] LABS: ANISOCYTOSIS MODERATE; CRENATED RBC SLIGHT; HYPOCHROMASIA MODERATE; MICROCYTOSIS SLIGHT; POIKILOCYTOSIS SLIGHT; TEAR DROP CELLS SLIGHT
[2017-03-07 05:00] LABS: THYROID STIMULATING HORMONE 2.17 UIU/ML (0.35-4.94)
[2017-03-07] MEDS: inSUlin ASPART (NovoLOG) 1 UNIT/0.01 ML (CHARGE PER UNIT) SC SCH ×4 (06:11→20:24)
[2017-03-07] MEDS: PIPERACILLIN SODIUM/TAZOBACTAM 4.5 GM in NS (IVPB) 100 ML IV SCH ×2 (06:12→11:55)
[2017-03-07] MEDS: NS IV 1000 ML 1,000 ML IV SCH (07:56)
[2017-03-07] MEDS: SIMETHICONE 80 MG (MYLICON) CHEW PO SCH ×4 (08:05→20:23)
[2017-03-07] MEDS: guaiFENesin/DM (ROBITUSSIN DM) 10 ML UDC PO PRN ×3 (08:55→20:24)
[2017-03-07] MEDS: ENOXAPARIN 30 MG/0.3 ML (LOVENOX) SYR SC SCH (11:58)
--- NOTE | 2017-03-07 12:21 | Progress Note (SOAP) ---
Subjective Subjective/Events-last exam Magda is breathing better this morning but is unhappy that his BS are running high. He would like that to be looked at. He is still having sinus tachy with PACs and PVCs. No CP. Review of Systems Date Seen by Provider: Mar 07, 2017 Time Seen by Provider: 10:00 Pulmonary: Dyspnea, Cough Cardiovascular: No: Chest Pain Objective Exam Last Set of Vital Signs Vital Signs Date Time Temp Pulse Resp B/P (MAP) Pulse Ox O2 Delivery O2 Flow Rate FiO2 03/07/17 12:00 100.1 111 26 150/72 (98) 98 Vapotherm 45.00 6.00 03/07/17 08:43 45 Capillary Refill : Less Than 3 Seconds I&O Intake and Output 03/07/17 00:00 Intake Total 2050 ml Output Total 1400 ml Balance 650 ml Intake Oral 950 ml IV Total 1100 ml Output Urine Total 1400 ml General: Alert, Oriented X3, Cooperative, No Acute Distress HEENT: Atraumatic, PERRLA, EOMI, Mucous Memb Moist/[place] Lungs: Other (wheezing throughout, good effort sitting in chair) Heart: Regular Rate, Normal S1, Normal S2, No Murmurs, Gallops, Rubs, Other Abdomen: Normal Bowel Sounds, Soft, No Tenderness Extremities: No Clubbing, No Cyanosis, No Edema, Normal Pulses Neuro: Normal Speech Psych/Mental Status: Mental Status NL, Mood NL Results/Procedures Lab Laboratory Tests 03/06/17 12:45: Blood Gas Puncture Site R RAD, Blood Gas Patient Temperature 101.4, Arterial Blood pH 7.34*L, Arterial Blood Partial Pressure CO2 27L, Arterial Blood Partial Pressure O2 96H, Arterial Blood HCO3 14*L, Arterial Blood Total CO2 14.4L, Arterial Blood Oxygen Saturation 98, Arterial Blood Base Excess -10.7L, Steve Test YES-POS, Blood Gas Ventilator Setting NO, Blood Gas Inspired Oxygen 40% 03/06/17 13:52: Lactic Acid Level 1.61 03/06/17 16:51: Glucometer 247H 03/06/17 22:29: Glucometer 226H 03/07/17 02:25: Stool Occult Blood Immunoassay NEGATIVE 03/07/17 03:56: White Blood Count 20.6H, Red Blood Count 3.18L, Hemoglobin 8.0L, Hematocrit 25L , Mean Corpuscular Volume 80, Mean Corpuscular Hemoglobin 25, Mean Corpuscular Hemoglobin Concent 32, Red Cell Distribution Width 21.3H, Platelet Count 270, Mean Platelet Volume 12.6H, Neutrophils (%) (Auto) 86H, Lymphocytes (%) (Auto) 3L, Monocytes (%) (Auto) 10, Eosinophils (%) (Auto) 0, Basophils (%) (Auto) 0, Neutrophils # (Auto) 17.8H, Lymphocytes # (Auto) 0.7L, Monocytes # (Auto) 2.1H, Eosinophils # (Auto) 0.0, Basophils # (Auto) 0.1, Neutrophils % (Manual) 89, Lymphocytes % (Manual) 1, Monocytes % (Manual) 6, Eosinophils % (Manual) 0, Basophils % (Manual) 0, Band Neutrophils 4, Polychromasia SLIGHT, Hypochromasia MODERATE, Poikilocytosis SLIGHT, Anisocytosis MODERATE, Microcytosis SLIGHT, Macrocytosis MODERATE, Tear Drop Cells SLIGHT, Crenated Cell SLIGHT, Elliptocytes SLIGHT, Sodium Level 135, Potassium Level 3.8, Chloride Level 108H , Carbon Dioxide Level 13L, Anion Gap 14, Blood Urea Nitrogen 51H, Creatinine 2.90H, Estimat Glomerular Filtration Rate 21, BUN/Creatinine Ratio 18, Glucose Level 194H, Calcium Level 7.3L, Magnesium Level 2.1, Total Bilirubin 0.7, Aspartate Amino Transf (AST/SGOT) 31, Alanine Aminotransferase (ALT/SGPT) 26, Alkaline Phosphatase 36L, Total Protein 6.1L, Albumin 2.7L, Thyroid Stimulating Hormone (TSH) 2.17 03/07/17 05:31: Glucometer 217H 03/07/17 11:57: Glucometer 232H Microbiology 03/05/17 Gram Stain - Final, Complete 03/05/17 Sputum Culture - Final, Complete Usual/normal lauren isolated. 03/05/17 Urine Culture - Final, Complete Klebsiella Pneumoniae Radiology NAME: MAGDA WALLS [facility] REC#: [id number] PT STATUS: ADM IN : 1930 PHYSICIAN: ELLE MARTIN DO ADMIT DATE: 03/05/17/ICU Draft Date of Exam:03/06/17 CHEST 1 VIEW, AP/PA ONLY EXAMINATION: Portable upright radiograph of the chest. INDICATION: Shortness of breath. FINDINGS: There are increasing patchy infiltrates in the lung bases and right perihilar region and suggestion of increased vascular congestion. The heart size is borderline. There are probable tiny bilateral effusions. No pneumothorax. IMPRESSION: Increasing vascular congestion and bibasilar patchy infiltrates or atelectasis. Dictated on workstation # [id number] Dict: 03/06/17 1151 Trans: 03/06/17 1156 [facility] [id number] Interpreted by: GISSEL MARTIN MD Electronically signed by: Assessment/Plan Assessment/Plan Admission Dx ACUTE RESPIRATORY FAILURE BILATERAL PNEUMONIA VOLUME OVERLOAD CONTRIBUTING TO PULMONARY EDEMA ACUTE ON CHRONIC RENAL FAILURE SINUS TACHYCARDIA PACS AND PVCS HTN DMT2 CHRONIC DEBILITY Plan ACUTE RESPIRATORY FAILURE BILATERAL PNEUMONIA 03/07 - patient currently on vapotherm, still short of breath. Resp cx is usual lauren. on Zosyn for UTI, will also give good pulm coverage if necessary. on levalbuterol q6h. will also encourage IS in the event there is some atelectasis developing. VOLUME OVERLOAD CONTRIBUTING TO PULMONARY EDEMA 03/07 - pt appears dehydrated to me today. will obtain CXR to see if it has improved. I am goign to give a slow bolus of 1L over 5 hours, carefully checking resp status in that time. IN addition, will obtain BMP to see if that helped the GFR. ACUTE ON CHRONIC RENAL FAILURE 03/07 - GFR still hovering in low 20s. needs fluids but we are held up because of the respiratory distress. see above. SINUS TACHYCARDIA PACS AND PVCS 03/07 - low dose BB today as we are concerned he will go into a fib. Dr Green kindly consulting. Suspect the sinus tachy is also related to dehydration and/ or sepsis picture. HTN 03/07 - holding meds for now d/t sinus tach and overall low BP. DMT2 03/07 - on SSI, holding levemir for now. will add levemir 20 units tonight to assist in BS control. CHRONIC DEBILITY 03/07 - fair prognosis. likely to require SNF at [place]. CODE STATUS: per nursing note on 03/06, pt states he is a full code and wants everything done. DVT PROPH: Renally dosed lovenox GI PROPH: Pepcid Clinical Quality Measures DVT/VTE Risk/Contraindication: Risk Factor Score Per Nursin RFS Level Per Nursing on Admit: 4+=Very High CARMENZA ROWE MD Mar 07, 2017 12:21 pm
[2017-03-07] MEDS ORDERED: NS IV 1000 ML 1,000 ML IV SCH (13:00)
[2017-03-07] MEDS: ACETAMINOPHEN 325 MG TABLET/CAPLET (TYLENOL) PO PRN ×2 (13:14→22:43)
--- NOTE | 2017-03-07 13:21 | Progress Note-Cardiology ---
Cardiology SOAP Progress Note Subjective: Notes gen malaise and weakness Denies cp or palp or syncope Objective: I&O/Vital Signs Vital Sign - Last 12Hours 03/07/17 03/07/17 03/07/17 03/07/17 02:28 03:00 03:06 03:12 Temp 99.0 Pulse 105 93 Resp 19 22 B/P (MAP) 100/63 (75) 97/67 (77) Pulse Ox 96 98 96 O2 Delivery Vapotherm Vapotherm Vapotherm O2 Flow Rate 45.00 45.00 8.00 8.00 8.00 FiO2 45 03/07/17 03/07/17 03/07/17 03/07/17 03:58 05:02 05:43 06:10 Temp 98.7 98.5 Pulse 107 103 Resp 19 21 B/P (MAP) 113/65 (81) Pulse Ox 98 98 O2 Delivery Vapotherm Vapotherm O2 Flow Rate 45.00 45.00 8.00 8.00 03/07/17 03/07/17 03/07/17 03/07/17 07:00 07:05 08:00 08:00 Temp 98.0 Pulse 113 102 113 Resp 27 28 B/P (MAP) 137/64 (88) 129/72 (91) Pulse Ox 97 95 O2 Delivery Vapotherm Vapotherm O2 Flow Rate 45.00 45.00 8.00 8.00 03/07/17 03/07/17 03/07/17 03/07/17 08:00 08:43 09:00 12:00 Temp 100.1 Pulse 118 111 Resp 19 26 B/P (MAP) 150/72 (98) Pulse Ox 96 97 98 O2 Delivery Vapotherm Vapotherm Vapotherm Vapotherm O2 Flow Rate 8.00 8.00 45.00 45.00 8.00 6.00 FiO2 45 45 Intake and Output 03/07/17 00:00 Intake Total 750 ml Output Total 1050 ml Balance -300 ml Weight (Pounds): 211 Weight (Ounces): 5.0 Weight (Calculated Kilograms): 95.853177 Constitutional: appears stated age, AAO x 3, well-nourished Respiratory: No accessory muscle use, No respiratory distress, chest expansion is symmetric, chest is bilaterally symmetric, crackles (lower lobes), other ( dyspnea with conversation) Gastrointestional: No tender, soft, audible bowel sounds Extremities: no lower extremity edema bilateral Neurologic/Psychiatric: grossly intact Skin: No rash, No ulcerations Results/Procedures: Labs Laboratory Tests 03/06/17 13:52: Lactic Acid Level 1.61 03/06/17 16:51: Glucometer 247H 03/06/17 22:29: Glucometer 226H 03/07/17 02:25: Stool Occult Blood Immunoassay NEGATIVE 03/07/17 03:56: White Blood Count 20.6H, Red Blood Count 3.18L, Hemoglobin 8.0L, Hematocrit 25L , Mean Corpuscular Volume 80, Mean Corpuscular Hemoglobin 25, Mean Corpuscular Hemoglobin Concent 32, Red Cell Distribution Width 21.3H, Platelet Count 270, Mean Platelet Volume 12.6H, Neutrophils (%) (Auto) 86H, Lymphocytes (%) (Auto) 3L, Monocytes (%) (Auto) 10, Eosinophils (%) (Auto) 0, Basophils (%) (Auto) 0, Neutrophils # (Auto) 17.8H, Lymphocytes # (Auto) 0.7L, Monocytes # (Auto) 2.1H, Eosinophils # (Auto) 0.0, Basophils # (Auto) 0.1, Neutrophils % (Manual) 89, Lymphocytes % (Manual) 1, Monocytes % (Manual) 6, Eosinophils % (Manual) 0, Basophils % (Manual) 0, Band Neutrophils 4, Polychromasia SLIGHT, Hypochromasia MODERATE, Poikilocytosis SLIGHT, Anisocytosis MODERATE, Microcytosis SLIGHT, Macrocytosis MODERATE, Tear Drop Cells SLIGHT, Crenated Cell SLIGHT, Elliptocytes SLIGHT, Sodium Level 135, Potassium Level 3.8, Chloride Level 108H , Carbon Dioxide Level 13L, Anion Gap 14, Blood Urea Nitrogen 51H, Creatinine 2.90H, Estimat Glomerular Filtration Rate 21, BUN/Creatinine Ratio 18, Glucose Level 194H, Calcium Level 7.3L, Magnesium Level 2.1, Total Bilirubin 0.7, Aspartate Amino Transf (AST/SGOT) 31, Alanine Aminotransferase (ALT/SGPT) 26, Alkaline Phosphatase 36L, Total Protein 6.1L, Albumin 2.7L, Thyroid Stimulating Hormone (TSH) 2.17 03/07/17 05:31: Glucometer 217H 03/07/17 11:57: Glucometer 232H Microbiology 03/05/17 Gram Stain - Final, Complete 03/05/17 Sputum Culture - Final, Complete Usual/normal lauren isolated. 03/05/17 Urine Culture - Final, Complete Klebsiella Pneumoniae A/P: Assessment: Probable septicemia with borderline septic shock Acute renal failure Sinus tach due to sepsis; also sinus node dysfunction (multiple supraventricular ectopics) Echo of 03/06/17: Normal LVEF (55-60%), normal PASP, no significant valvular heart disease Pneumonia - management per medical services UTI - management per medical services DM 2 - management per medical services HTN - currently somewhat low BP Anemia of undetermined etiology - medical services managing Chronic urinary incontinence Chronic NSAID use H/o right great toe amputation in 2016 Plan: Complex management issue Worsening renal failure I discussed his case with Dr Natan Bear Add bb to regimen if hypotension is not an issue Follow labs closely I spoke with him and answered questions I spoke with him and his fam in detail last night NATALI RILEY MD FACP FACC CCDS Mar 07, 2017 13:21
--- NOTE | 2017-03-07 13:33 | Diagnostic Imaging Report ---
Clinical indication: Followup pneumonia and congestion. Exam: Portable chest x-ray upright view. Comparisons: Chest x-ray dated 03/06/2017. Findings: Lungs/pleura: There is slight improved aeration of the left perihilar and left lung base region. There continues to be increased airspace opacities scattered throughout both lungs with the right lung base affected the most. There is blunting of the left costophrenic angle again seen which may represent a pleural effusion. There is no pneumothorax. Stable cardiomegaly and mild pulmonary vascular congestion. There are hypertrophic spurs seen throughout the spine. Impression: 1: There is slight improved aeration of the left perihilar region with otherwise continued scattered areas of bilateral lung infiltrates. 2: There is stable cardiomegaly and mild pulmonary vascular congestion. Dictated by: Dictated on workstation # [id number]
[2017-03-07 18:34] LABS: CALCIUM 7.4 MG/DL (8.5-10.1); CREATININE SERUM 2.68 MG/DL (0.60-1.30); POTASSIUM 3.6 MMOL/L (3.6-5.0)
[2017-03-08] VITALS (10 sets, daily range): BP systolic 131–164; BP diastolic 65–93
[2017-03-08] MEDS: NS IV 1000 ML 1,000 ML IV SCH ×2 (00:53→13:10)
[2017-03-08] MEDS: PIPERACILLIN/TAZOBACTAM 4.5 GM/NS 100 ML IVPB IV SCH ×4 (00:54→13:10)
[2017-03-08] MEDS: RT-LEVALBUTEROL (XOPENEX) 1.25 MG/3 ML NEB NON-FORMULARY INH SCH ×4 (02:26→20:54)
[2017-03-08 04:55] LABS: MEAN PLATELET VOLUME 13.1 FL (7.4-10.4); RED BLOOD COUNT 3.06 10^6/uL (4.35-5.85); RED CELL DISTRIBUTION WIDTH 21.6 % (10.0-14.5); WHITE BLOOD COUNT 14.6 10^3/uL (4.3-11.0)
[2017-03-08 05:26] LABS: CALCIUM 7.1 MG/DL (8.5-10.1); CREATININE SERUM 2.46 MG/DL (0.60-1.30); POTASSIUM 3.6 MMOL/L (3.6-5.0)
[2017-03-08] MEDS: inSUlin ASPART (NovoLOG) 1 UNIT/0.01 ML (CHARGE PER UNIT) SC SCH ×4 (06:22→22:03)
[2017-03-08] MEDS: PANTOPRAZOLE 40 MG (PROTONIX) TAB PO SCH (06:22)
[2017-03-08] MEDS: SIMETHICONE 80 MG (MYLICON) CHEW PO SCH ×4 (08:30→21:59)
[2017-03-08] MEDS ORDERED: NS IV 500 ML 500 ML IV SCH (09:31)
[2017-03-08] MEDS ORDERED: FUROSEMIDE 40 MG/4 ML INJ (LASIX) IVP ONE (09:45)
[2017-03-08] MEDS: guaiFENesin/DM (ROBITUSSIN DM) 10 ML UDC PO PRN ×2 (11:16→21:58)
[2017-03-08] MEDS: ACETAMINOPHEN 325 MG TABLET/CAPLET (TYLENOL) PO PRN (11:17)
[2017-03-08] MEDS: ENOXAPARIN 30 MG/0.3 ML (LOVENOX) SYR SC SCH (11:17)
--- NOTE | 2017-03-08 14:37 | Progress Note-Cardiology ---
Cardiology SOAP Progress Note Subjective: Reports gen malaise. No cp or palp or syncope Objective: I&O/Vital Signs Vital Sign - Last 12Hours 03/08/17 03/08/17 03/08/17 03/08/17 03:00 04:00 06:33 07:00 Temp 98.8 Pulse 128 Pulse Ox 93 O2 Delivery Vapotherm Vapotherm O2 Flow Rate 35.00 6.00 6.00 FiO2 45 03/08/17 03/08/17 03/08/17 03/08/17 07:55 08:00 11:16 12:44 Temp 97.6 100.7 98.9 Pulse 114 104 Resp 24 22 B/P (MAP) 148/81 (103) 131/70 (90) Pulse Ox 99 98 O2 Delivery Vapotherm Vapotherm Vapotherm O2 Flow Rate 35.00 6.00 35.00 6.00 6.00 FiO2 35 03/08/17 03/08/17 03/08/17 12:44 13:00 13:00 Temp 98.9 99.2 Pulse 104 105 107 Resp 22 24 B/P (MAP) 131/70 137/65 Pulse Ox 98 98 O2 Delivery Vapotherm Vapotherm O2 Flow Rate 6.00 6.00 FiO2 35 35 Intake and Output 03/08/17 00:00 Intake Total 1980 ml Output Total 675 ml Balance 1305 ml Weight (Pounds): 215 Weight (Ounces): 5.0 Weight (Calculated Kilograms): 97.172660 Constitutional: appears stated age, AAO x 3, well-nourished Respiratory: No accessory muscle use, No respiratory distress, chest expansion is symmetric, chest is bilaterally symmetric, crackles (lower lobes), other ( dyspnea with conversation) Gastrointestional: No tender, soft, audible bowel sounds Extremities: no lower extremity edema bilateral Neurologic/Psychiatric: grossly intact Skin: No rash, No ulcerations Results/Procedures: Labs Laboratory Tests 03/07/17 16:03: Glucometer 230H 03/07/17 18:09: Sodium Level 137, Potassium Level 3.6, Chloride Level 110H, Carbon Dioxide Level 14L, Anion Gap 13, Blood Urea Nitrogen 48H, Creatinine 2.68H, Estimat Glomerular Filtration Rate 23, BUN/Creatinine Ratio 18, Glucose Level 172H, Calcium Level 7.4L 03/07/17 20:23: Glucometer 204H 03/08/17 03:54: Sodium Level 136, Potassium Level 3.6, Chloride Level 112H, Carbon Dioxide Level 11L, Anion Gap 13, Blood Urea Nitrogen 46H, Creatinine 2.46H, Estimat Glomerular Filtration Rate 25, BUN/Creatinine Ratio 19, Glucose Level 223H, Calcium Level 7.1L, White Blood Count 14.6H, Red Blood Count 3.06L, Hemoglobin 7.7L, Hematocrit 24L, Mean Corpuscular Volume 80, Mean Corpuscular Hemoglobin 25 , Mean Corpuscular Hemoglobin Concent 32, Red Cell Distribution Width 21.6H, Platelet Count 295, Mean Platelet Volume 13.1H 03/08/17 06:09: Glucometer 233H 03/08/17 11:24: Glucometer 167H Microbiology 03/05/17 Gram Stain - Final, Complete 03/05/17 Sputum Culture - Final, Complete Usual/normal lauren isolated. 03/05/17 Urine Culture - Final, Complete Klebsiella Pneumoniae A/P: Assessment: Probable septicemia with borderline septic shock Acute renal failure Sinus tach due to sepsis; also sinus node dysfunction (multiple supraventricular ectopics) Echo of 03/06/17: Normal LVEF (55-60%), normal PASP, no significant valvular heart disease Pneumonia - management per medical services UTI - management per medical services DM 2 - management per medical services HTN - currently somewhat low BP Anemia of undetermined etiology - medical services managing Chronic urinary incontinence H/o chronic NSAID use H/o right great toe amputation in 2015 Plan: Complex management issue Increase bb, now that BP is better Follow labs closely I spoke with him and answered questions NATALI RILEY MD FACP FAC CCDS Mar 08, 2017 14:37
[2017-03-08] MEDS: meTOprolol TARTRATE 25 MG (LOPRESSOR) TABLET PO SCH (21:59)
[2017-03-08 23:25] LABS: CALCIUM 7.2 MG/DL (8.5-10.1); CREATININE SERUM 2.66 MG/DL (0.60-1.30); POTASSIUM 3.5 MMOL/L (3.6-5.0)
--- NOTE | 2017-03-08 23:42 | Progress Note (SOAP) ---
Subjective Subjective/Events-last exam Patient is still very short of breath and tachycardic. Review of Systems Date Seen by Provider: Mar 08, 2017 Time Seen by Provider: 09:30 Pulmonary: Dyspnea Cardiovascular: Palpitations, No: Chest Pain Objective Exam Last Set of Vital Signs Vital Signs Date Time Temp Pulse Resp B/P (MAP) Pulse Ox O2 Delivery O2 Flow Rate FiO2 03/08/17 21:40 High Flow N/C 1.00 03/08/17 20:55 96 25 03/08/17 20:41 99.9 115 17 145/91 Capillary Refill : Less Than 3 Seconds I&O Intake and Output 03/08/17 00:00 Intake Total 3920 ml Output Total 2125 ml Balance 1795 ml Intake Oral 1720 ml IV Total 2200 ml Output Urine Total 2125 ml # Bowel Movements 5 General: Alert, Oriented X3, Cooperative, Mild Distress Lungs: Other (wheezing bilaterally with good effort) Heart: Regular Rate, Normal S1, Normal S2, No Murmurs, Gallops, Rubs Abdomen: Normal Bowel Sounds, Soft, No Tenderness Extremities: No Clubbing, No Cyanosis, No Edema Psych/Mental Status: Mental Status NL, Mood NL Results/Procedures Lab Laboratory Tests 03/08/17 03:54: White Blood Count 14.6H, Red Blood Count 3.06L, Hemoglobin 7.7L, Hematocrit 24L , Mean Corpuscular Volume 80, Mean Corpuscular Hemoglobin 25, Mean Corpuscular Hemoglobin Concent 32, Red Cell Distribution Width 21.6H, Platelet Count 295, Mean Platelet Volume 13.1H, Sodium Level 136, Potassium Level 3.6, Chloride Level 112H, Carbon Dioxide Level 11L, Anion Gap 13, Blood Urea Nitrogen 46H, Creatinine 2.46H, Estimat Glomerular Filtration Rate 25, BUN/Creatinine Ratio 19 , Glucose Level 223H, Calcium Level 7.1L 03/08/17 06:09: Glucometer 233H 03/08/17 11:24: Glucometer 167H 03/08/17 16:21: Glucometer 169H 03/08/17 22:02: Glucometer 256H 03/08/17 23:01: Hemoglobin 9.8#L, Hematocrit 30L, Sodium Level 138, Potassium Level 3.5L, Chloride Level 112H, Carbon Dioxide Level 13L, Anion Gap 13, Blood Urea Nitrogen 43H, Creatinine 2.66H, Estimat Glomerular Filtration Rate 23, BUN/ Creatinine Ratio 16, Glucose Level 282H, Calcium Level 7.2L Microbiology 03/05/17 Gram Stain - Final, Complete 03/05/17 Sputum Culture - Final, Complete Usual/normal lauren isolated. 03/05/17 Urine Culture - Final, Complete Klebsiella Pneumoniae Radiology NAME: MAGDA WALLS [facility] REC#: [id number] PT STATUS: ADM IN : 1930 PHYSICIAN: ELLE MARTIN DO ADMIT DATE: 03/05/17/ICU Draft Date of Exam:03/06/17 CHEST 1 VIEW, AP/PA ONLY EXAMINATION: Portable upright radiograph of the chest. INDICATION: Shortness of breath. FINDINGS: There are increasing patchy infiltrates in the lung bases and right perihilar region and suggestion of increased vascular congestion. The heart size is borderline. There are probable tiny bilateral effusions. No pneumothorax. IMPRESSION: Increasing vascular congestion and bibasilar patchy infiltrates or atelectasis. Dictated on workstation # [id number] Dict: 03/06/17 1151 Trans: 03/06/17 1156 [facility] [id number] Interpreted by: GISSEL MARTIN MD Electronically signed by: Assessment/Plan Assessment/Plan Plan ACUTE RESPIRATORY FAILURE BILATERAL PNEUMONIA 03/07 - patient currently on vapotherm, still short of breath. Resp cx is usual lauren. on Zosyn for UTI, will also give good pulm coverage if necessary. on levalbuterol q6h. will also encourage IS in the event there is some atelectasis developing. 03/08 - pt still on vapotherm. holding steroids as does not appear to have COPD by hx. on zosyn. VOLUME OVERLOAD CONTRIBUTING TO PULMONARY EDEMA 03/07 - pt appears dehydrated to me today. will obtain CXR to see if it has improved. I am goign to give a slow bolus of 1L over 5 hours, carefully checking resp status in that time. IN addition, will obtain BMP to see if that helped the GFR. 03/08 - minor improvement in GFR, 2 units PRBCs today. ACUTE ON CHRONIC RENAL FAILURE 03/07 - GFR still hovering in low 20s. needs fluids but we are held up because of the respiratory distress. see above. 03/08 - last creat in clinic was around 1.5. do not believe we are going to get better than where we are. cont gentle hydration for now. SINUS TACHYCARDIA PACS AND PVCS 03/07 - low dose BB today as we are concerned he will go into a fib. Dr Green kindly consulting. Suspect the sinus tachy is also related to dehydration and/ or sepsis picture. 03/08 - pt did have an episode of a fib. placed on BB and Eliquis. HTN 03/07 - holding meds for now d/t sinus tach and overall low BP. DMT2 03/07 - on SSI, holding levemir for now. will add levemir 20 units tonight to assist in BS control. 03/08 - marginal control of BS. CHRONIC DEBILITY 03/07 - fair prognosis. likely to require SNF at [place]. CODE STATUS: per nursing note on 03/06, pt states he is a full code and wants everything done. DVT PROPH: Renally dosed lovenox GI PROPH: Pepcid Clinical Quality Measures DVT/VTE Risk/Contraindication: Risk Factor Score Per Nursin RFS Level Per Nursing on Admit: 4+=Very High CARMENZA ROWE MD Mar 08, 2017 11:41 pm
[2017-03-09] MEDS: PIPERACILLIN/TAZOBACTAM 4.5 GM/NS 100 ML IVPB IV SCH ×4 (00:20→13:18)
[2017-03-09] MEDS: NS IV 1000 ML 1,000 ML IV SCH ×3 (01:40→20:09)
[2017-03-09] MEDS: RT-LEVALBUTEROL (XOPENEX) 1.25 MG/3 ML NEB NON-FORMULARY INH SCH ×4 (03:03→21:36)
[2017-03-09 04:00] VITALS: BP 128/96
[2017-03-09 04:54] LABS: MEAN PLATELET VOLUME 12.3 FL (7.4-10.4); RED BLOOD COUNT 3.68 10^6/uL (4.35-5.85); RED CELL DISTRIBUTION WIDTH 20.3 % (10.0-14.5); WHITE BLOOD COUNT 11.4 10^3/uL (4.3-11.0)
[2017-03-09 05:20] LABS: CALCIUM 7.2 MG/DL (8.5-10.1); CREATININE SERUM 2.57 MG/DL (0.60-1.30); POTASSIUM 3.4 MMOL/L (3.6-5.0)
[2017-03-09] MEDS: inSUlin ASPART (NovoLOG) 1 UNIT/0.01 ML (CHARGE PER UNIT) SC SCH ×4 (06:02→21:15)
[2017-03-09] MEDS: PANTOPRAZOLE 40 MG (PROTONIX) TAB PO SCH (06:19)
[2017-03-09 08:00] VITALS: BP 148/95
[2017-03-09] MEDS: meTOprolol TARTRATE 25 MG (LOPRESSOR) TABLET PO SCH (08:35)
[2017-03-09] MEDS: SIMETHICONE 80 MG (MYLICON) CHEW PO SCH ×4 (08:35→21:15)
[2017-03-09] MEDS: ENOXAPARIN 30 MG/0.3 ML (LOVENOX) SYR SC SCH (11:40)
[2017-03-09 12:00] VITALS: BP 149/90
--- NOTE | 2017-03-09 12:29 | Progress Note-Cardiology ---
Cardiology SOAP Progress Note Subjective: No cp or palp or syncope Continuing gen weakness and malaise Objective: I&O/Vital Signs Vital Sign - Last 12Hours 03/09/17 03/09/17 03/09/17 03/09/17 01:00 03:03 04:00 04:00 Temp 100.0 Pulse 138 115 Resp 34 B/P (MAP) 128/96 (107) Pulse Ox 96 95 O2 Delivery Room Air Vapotherm O2 Flow Rate 25.00 5.00 03/09/17 03/09/17 03/09/17 03/09/17 07:00 08:00 08:00 09:13 Temp 99.0 Pulse 111 B/P (MAP) Pulse Ox 93 O2 Delivery Room Air Room Air Room Air Intake and Output 03/09/17 00:00 Intake Total 1820 ml Output Total 2175 ml Balance -355 ml Weight (Pounds): 215 Weight (Ounces): 5.0 Weight (Calculated Kilograms): 97.318011 Constitutional: appears stated age, AAO x 3, well-nourished Respiratory: No accessory muscle use, No respiratory distress, chest expansion is symmetric, chest is bilaterally symmetric, crackles (lower lobes), other ( dyspnea with conversation) Gastrointestional: No tender, soft, audible bowel sounds Extremities: no lower extremity edema bilateral Neurologic/Psychiatric: grossly intact Skin: No rash, No ulcerations Results/Procedures: Labs Laboratory Tests 03/08/17 16:21: Glucometer 169H 03/08/17 22:02: Glucometer 256H 03/08/17 23:01: Hemoglobin 9.8#L, Hematocrit 30L, Sodium Level 138, Potassium Level 3.5L, Chloride Level 112H, Carbon Dioxide Level 13L, Anion Gap 13, Blood Urea Nitrogen 43H, Creatinine 2.66H, Estimat Glomerular Filtration Rate 23, BUN/ Creatinine Ratio 16, Glucose Level 282H, Calcium Level 7.2L 03/09/17 04:35: Hemoglobin 9.6L, Hematocrit 29L, Sodium Level 139, Potassium Level 3.4L, Chloride Level 112H, Carbon Dioxide Level 14L, Anion Gap 13, Blood Urea Nitrogen 40H, Creatinine 2.57H, Estimat Glomerular Filtration Rate 24, BUN/ Creatinine Ratio 16, Glucose Level 180H, Calcium Level 7.2L, White Blood Count 11.4H, Red Blood Count 3.68L, Mean Corpuscular Volume 79L, Mean Corpuscular Hemoglobin 26, Mean Corpuscular Hemoglobin Concent 33, Red Cell Distribution Width 20.3H, Platelet Count 393, Mean Platelet Volume 12.3H 03/09/17 10:53: Glucometer 192H Microbiology 03/09/17 Influenza Types A,B Antigen (MORGAN) - Final, Complete 03/05/17 Urine Culture - Final, Complete Klebsiella Pneumoniae Laboratory Tests 03/07/17 18:09 03/08/17 03:54 03/08/17 23:01 03/09/17 04:35 A/P: Assessment: Probable septicemia with borderline septic shock Acute renal failure Sinus tach due to sepsis; also sinus node dysfunction (multiple supraventricular ectopics) Echo of 03/06/17: Normal LVEF (55-60%), normal PASP, no significant valvular heart disease Pneumonia - management per medical services UTI - management per medical services DM 2 - management per medical services HTN - currently somewhat low BP Anemia of undetermined etiology - medical services managing Chronic urinary incontinence H/o chronic NSAID use H/o right great toe amputation in 2015 Plan: Complex management issue Replenish K Follow labs closely I spoke with him and his fam answered questions NATALI RILEY MD FACP FAC CCDS Mar 09, 2017 12:29
[2017-03-09] MEDS ORDERED: KCL 20 MEQ TAB (K-DUR) PO NR (12:32)
[2017-03-09] MEDS ORDERED: APIXABAN 5 MG (ELIQUIS) TABLET PO NR ×2 (14:45→22:00)
[2017-03-09] MEDS ORDERED: meTOprolol TARTRATE 50 MG (LOPRESSOR) TAB PO NR (14:45)
[2017-03-09 15:54] VITALS: BP 149/68
[2017-03-09 19:28] VITALS: BP 145/80
[2017-03-09] MEDS: meTOprolol TARTRATE 50 MG (LOPRESSOR) TAB PO SCH (21:16)
--- NOTE | 2017-03-09 21:19 | Progress Note (SOAP) ---
Subjective Subjective/Events-last exam Pt less SOB today. Ready for transfer to the floor. no CP. Review of Systems Date Seen by Provider: Mar 09, 2017 Time Seen by Provider: 11:30 Pulmonary: Dyspnea, No Cough Cardiovascular: No: Chest Pain Objective Exam Last Set of Vital Signs Vital Signs Date Time Temp Pulse Resp B/P (MAP) Pulse Ox O2 Delivery O2 Flow Rate FiO2 03/09/17 19:28 100.0 101 18 145/80 (101) 96 Room Air 03/09/17 04:00 25.00 5.00 03/08/17 20:55 25 Capillary Refill : Less Than 3 Seconds I&O Intake and Output 03/09/17 00:00 Intake Total 2960 ml Output Total 3375 ml Balance -415 ml Intake Oral 1760 ml IV Total 1200 ml Output Urine Total 3375 ml # Bowel Movements 2 General: Alert, Oriented X3, Cooperative, Mild Distress Lungs: Other (increased effort, min wheezing) Heart: Regular Rate, Normal S1, Normal S2, No Murmurs, Gallops, Rubs Abdomen: Normal Bowel Sounds, Soft, No Tenderness Extremities: No Clubbing, No Cyanosis, No Edema Psych/Mental Status: Mental Status NL, Mood NL Results/Procedures Lab Laboratory Tests 03/08/17 22:02: Glucometer 256H 03/08/17 23:01: Hemoglobin 9.8#L, Hematocrit 30L, Sodium Level 138, Potassium Level 3.5L, Chloride Level 112H, Carbon Dioxide Level 13L, Anion Gap 13, Blood Urea Nitrogen 43H, Creatinine 2.66H, Estimat Glomerular Filtration Rate 23, BUN/ Creatinine Ratio 16, Glucose Level 282H, Calcium Level 7.2L 03/09/17 04:35: Hemoglobin 9.6L, Hematocrit 29L, Sodium Level 139, Potassium Level 3.4L, Chloride Level 112H, Carbon Dioxide Level 14L, Anion Gap 13, Blood Urea Nitrogen 40H, Creatinine 2.57H, Estimat Glomerular Filtration Rate 24, BUN/ Creatinine Ratio 16, Glucose Level 180H, Calcium Level 7.2L, White Blood Count 11.4H, Red Blood Count 3.68L, Mean Corpuscular Volume 79L, Mean Corpuscular Hemoglobin 26, Mean Corpuscular Hemoglobin Concent 33, Red Cell Distribution Width 20.3H, Platelet Count 393, Mean Platelet Volume 12.3H 03/09/17 10:53: Glucometer 192H 03/09/17 15:43: Glucometer 233H 03/09/17 20:35: Glucometer 216H Microbiology 03/09/17 Influenza Types A,B Antigen (MORGAN) - Final, Complete 03/05/17 Urine Culture - Final, Complete Klebsiella Pneumoniae Radiology NAME: MAGDA WALLS MED REC#: [id number] PT STATUS: ADM IN : 1930 PHYSICIAN: ELLE MARTIN DO ADMIT DATE: 03/05/17/ICU Draft Date of Exam:03/06/17 CHEST 1 VIEW, AP/PA ONLY EXAMINATION: Portable upright radiograph of the chest. INDICATION: Shortness of breath. FINDINGS: There are increasing patchy infiltrates in the lung bases and right perihilar region and suggestion of increased vascular congestion. The heart size is borderline. There are probable tiny bilateral effusions. No pneumothorax. IMPRESSION: Increasing vascular congestion and bibasilar patchy infiltrates or atelectasis. Dictated on workstation # [id number] Dict: 03/06/17 1151 Trans: 03/06/17 1156 [facility] [id number] Interpreted by: GISSEL MARTIN MD Electronically signed by: Assessment/Plan Assessment/Plan Plan ACUTE RESPIRATORY FAILURE BILATERAL PNEUMONIA 03/07 - patient currently on vapotherm, still short of breath. Resp cx is usual lauren. on Zosyn for UTI, will also give good pulm coverage if necessary. on levalbuterol q6h. will also encourage IS in the event there is some atelectasis developing. 03/08 - pt still on vapotherm. holding steroids as does not appear to have COPD by hx. on zosyn. 03/09 - now on 4LPM NC. cont levalbuterol for now. VOLUME OVERLOAD CONTRIBUTING TO PULMONARY EDEMA 03/07 - pt appears dehydrated to me today. will obtain CXR to see if it has improved. I am goign to give a slow bolus of 1L over 5 hours, carefully checking resp status in that time. IN addition, will obtain BMP to see if that helped the GFR. 03/08 - minor improvement in GFR, 2 units PRBCs today. 03/09 - continue gentle hydration ACUTE ON CHRONIC RENAL FAILURE 03/07 - GFR still hovering in low 20s. needs fluids but we are held up because of the respiratory distress. see above. 03/08 - last creat in clinic was around 1.5. do not believe we are going to get better than where we are. cont gentle hydration for now. 03/09 - no improvement, believe this is the new baseline. will need close monitoring as an outpatient. SINUS TACHYCARDIA PACS AND PVCS 03/07 - low dose BB today as we are concerned he will go into a fib. Dr Green kindly consulting. Suspect the sinus tachy is also related to dehydration and/ or sepsis picture. 03/08 - pt did have an episode of a fib. placed on BB and Eliquis. 03/09 - no further events. HTN 03/07 - holding meds for now d/t sinus tach and overall low BP. DMT2 03/07 - on SSI, holding levemir for now. will add levemir 20 units tonight to assist in BS control. 03/08 - marginal control of BS. 03/09 - slightly improved. CHRONIC DEBILITY 03/07 - fair prognosis. likely to require SNF at dc. [facility] this week. will need full hospital staffing to arrange. CODE STATUS: per nursing note on 03/06, pt states he is a full code and wants everything done. DVT PROPH: Renally dosed lovenox GI PROPH: Pepcid Clinical Quality Measures DVT/VTE Risk/Contraindication: Risk Factor Score Per Nursin RFS Level Per Nursing on Admit: 4+=Very High CARMENZA ROWE MD Mar 09, 2017 9:19 pm
[2017-03-09] MEDS: ACETAMINOPHEN 325 MG TABLET/CAPLET (TYLENOL) PO PRN (21:24)
[2017-03-10] VITALS (8 sets, daily range): BP systolic 109–169; BP diastolic 57–77
[2017-03-10] MEDS: PIPERACILLIN/TAZOBACTAM 4.5 GM/NS 100 ML IVPB IV SCH ×4 (00:16→12:31)
[2017-03-10] MEDS: RT-LEVALBUTEROL (XOPENEX) 1.25 MG/3 ML NEB NON-FORMULARY INH SCH ×4 (03:02→19:07)
[2017-03-10] MEDS: inSUlin ASPART (NovoLOG) 1 UNIT/0.01 ML (CHARGE PER UNIT) SC SCH ×4 (05:06→20:53)
[2017-03-10 05:52] LABS: MEAN PLATELET VOLUME 11.7 FL (7.4-10.4); RED BLOOD COUNT 3.57 10^6/uL (4.35-5.85); RED CELL DISTRIBUTION WIDTH 20.8 % (10.0-14.5); WHITE BLOOD COUNT 10.7 10^3/uL (4.3-11.0)
[2017-03-10 06:17] LABS: CALCIUM 7.2 MG/DL (8.5-10.1); CREATININE SERUM 2.4 MG/DL (0.60-1.30); POTASSIUM 3.9 MMOL/L (3.6-5.0)
[2017-03-10] MEDS: PANTOPRAZOLE 40 MG (PROTONIX) TAB PO SCH (06:30)
[2017-03-10] MEDS ORDERED: APIXABAN 5 MG (ELIQUIS) TABLET PO SCH (09:00)
[2017-03-10] MEDS: SIMETHICONE 80 MG (MYLICON) CHEW PO SCH ×4 (09:02→20:53)
[2017-03-10] MEDS: APIXABAN 2.5 MG (ELIQUIS) TABLET PO SCH ×2 (09:02→20:53)
[2017-03-10] MEDS: meTOprolol TARTRATE 50 MG (LOPRESSOR) TAB PO SCH ×2 (09:02→20:53)
[2017-03-10] MEDS: NS IV 1000 ML 1,000 ML IV SCH (10:29)
--- NOTE | 2017-03-10 13:49 | Progress Note-Cardiology ---
Cardiology SOAP Progress Note Subjective: Notes gen malaise and weakness Denies cp or palp or syncope Objective: I&O/Vital Signs Vital Sign - Last 12Hours 03/10/17 03/10/17 03/10/17 03/10/17 03:03 04:21 07:00 08:00 Temp 98.0 99.0 Pulse 93 101 109 Resp 20 16 B/P (MAP) 131/66 (87) 157/73 (101) Pulse Ox 93 95 94 O2 Delivery Room Air Room Air Room Air 03/10/17 03/10/17 08:15 10:15 Pulse Ox 96 O2 Delivery Room Air Room Air Intake and Output 03/09/17 23:59 Intake Total 2150 ml Output Total 900 ml Balance 1250 ml Weight (Pounds): 218 Weight (Ounces): 2.0 Weight (Calculated Kilograms): 98.839212 Constitutional: appears stated age, AAO x 3, well-nourished Respiratory: No accessory muscle use, No respiratory distress, chest expansion is symmetric, chest is bilaterally symmetric, crackles (lower lobes), other ( dyspnea with conversation) Gastrointestional: No tender, soft, audible bowel sounds Extremities: no lower extremity edema bilateral Neurologic/Psychiatric: grossly intact Skin: No rash, No ulcerations Results/Procedures: Labs Laboratory Tests 03/09/17 15:43: Glucometer 233H 03/09/17 20:35: Glucometer 216H 03/10/17 04:41: Glucometer 148H 03/10/17 05:39: White Blood Count 10.7, Red Blood Count 3.57L, Hemoglobin 9.3L, Hematocrit 29L, Mean Corpuscular Volume 81, Mean Corpuscular Hemoglobin 26, Mean Corpuscular Hemoglobin Concent 32, Red Cell Distribution Width 20.8H, Platelet Count 401H, Mean Platelet Volume 11.7H, Sodium Level 141, Potassium Level 3.9, Chloride Level 115H, Carbon Dioxide Level 14L, Anion Gap 12, Blood Urea Nitrogen 35H, Creatinine 2.40H, Estimat Glomerular Filtration Rate 26, BUN/Creatinine Ratio 15 , Glucose Level 165H, Calcium Level 7.2L 03/10/17 11:51: Glucometer 219H Microbiology 03/09/17 Influenza Types A,B Antigen (MORGAN) - Final, Complete 03/05/17 Urine Culture - Final, Complete Klebsiella Pneumoniae Laboratory Tests 03/08/17 23:01 03/09/17 04:35 03/10/17 05:39 A/P: Assessment: PAF, first documented on 03/09/17 Probable septicemia with borderline septic shock Acute renal failure Echo of 03/06/17: Normal LVEF (55-60%), normal PASP, no significant valvular heart disease Pneumonia - management per medical services UTI - management per medical services DM 2 - management per medical services HTN - currently somewhat low BP Anemia of undetermined etiology - medical services managing Chronic urinary incontinence H/o chronic NSAID use H/o right great toe amputation in 2015 Plan: Complex management issue PAF was documented yesterday BB for rate control Apixaban (dose adjusted for Cr Cl and age) for stroke prophylaxis Follow labs closely I spoke with him and answered questions NATALI RILEY MD FACP [facility] Mar 10, 2017 13:49
--- NOTE | 2017-03-10 14:33 | Progress Note (SOAP) ---
Subjective Subjective/Events-last exam Pt states he is not ready for hospice, wants to continue doing what he can to get better. He has [employer] benefits and wants to go to a [facility] that accepts [facility] to get rehab. Review of Systems Date Seen by Provider: Mar 10, 2017 Time Seen by Provider: 09:30 Pulmonary: No Dyspnea, No Cough Cardiovascular: No: Chest Pain Objective Exam Last Set of Vital Signs Vital Signs Date Time Temp Pulse Resp B/P (MAP) Pulse Ox O2 Delivery O2 Flow Rate FiO2 03/10/17 12:00 98.5 89 18 147/71 (96) 96 Room Air 03/09/17 04:00 25.00 5.00 03/08/17 20:55 25 Capillary Refill : Less Than 3 Seconds I&O Intake and Output 03/10/17 00:00 Intake Total 2750 ml Output Total 2850 ml Balance -100 ml Intake Oral 1550 ml IV Total 1200 ml Output Urine Total 2850 ml General: Alert, Oriented X3, Cooperative, Mild Distress Lungs: Other (increased effort, min wheezing today) Heart: Regular Rate, Normal S1, Normal S2, No Murmurs, Gallops, Rubs Abdomen: Normal Bowel Sounds, Soft, No Tenderness Extremities: No Clubbing, No Cyanosis, No Edema Psych/Mental Status: Mental Status NL, Mood NL Results/Procedures Lab Laboratory Tests 03/09/17 15:43: Glucometer 233H 03/09/17 20:35: Glucometer 216H 03/10/17 04:41: Glucometer 148H 03/10/17 05:39: White Blood Count 10.7, Red Blood Count 3.57L, Hemoglobin 9.3L, Hematocrit 29L, Mean Corpuscular Volume 81, Mean Corpuscular Hemoglobin 26, Mean Corpuscular Hemoglobin Concent 32, Red Cell Distribution Width 20.8H, Platelet Count 401H, Mean Platelet Volume 11.7H, Sodium Level 141, Potassium Level 3.9, Chloride Level 115H, Carbon Dioxide Level 14L, Anion Gap 12, Blood Urea Nitrogen 35H, Creatinine 2.40H, Estimat Glomerular Filtration Rate 26, BUN/Creatinine Ratio 15 , Glucose Level 165H, Calcium Level 7.2L 03/10/17 11:51: Glucometer 219H Microbiology 03/09/17 Influenza Types A,B Antigen (MORGAN) - Final, Complete 03/05/17 Urine Culture - Final, Complete Klebsiella Pneumoniae Radiology NAME: MAGDA WALLS [facility] REC#: [id number] PT STATUS: ADM IN : 1930 PHYSICIAN: ELLE MARTIN DO ADMIT DATE: 03/05/17/ICU Draft Date of Exam:03/06/17 CHEST 1 VIEW, AP/PA ONLY EXAMINATION: Portable upright radiograph of the chest. INDICATION: Shortness of breath. FINDINGS: There are increasing patchy infiltrates in the lung bases and right perihilar region and suggestion of increased vascular congestion. The heart size is borderline. There are probable tiny bilateral effusions. No pneumothorax. IMPRESSION: Increasing vascular congestion and bibasilar patchy infiltrates or atelectasis. Dictated on workstation # [id number] Dict: 03/06/17 1151 Trans: 03/06/17 1156 [facility] [id number] Interpreted by: GISSEL MARTIN MD Electronically signed by: Assessment/Plan Assessment/Plan Plan ACUTE RESPIRATORY FAILURE BILATERAL PNEUMONIA 03/07 - patient currently on vapotherm, still short of breath. Resp cx is usual lauren. on Zosyn for UTI, will also give good pulm coverage if necessary. on levalbuterol q6h. will also encourage IS in the event there is some atelectasis developing. 03/08 - pt still on vapotherm. holding steroids as does not appear to have COPD by hx. on zosyn. 03/09 - now on 4LPM NC. cont levalbuterol for now. 03/10 - will plan for referral to NH. decrease levalbuterol dose for now. VOLUME OVERLOAD CONTRIBUTING TO PULMONARY EDEMA 03/07 - pt appears dehydrated to me today. will obtain CXR to see if it has improved. I am goign to give a slow bolus of 1L over 5 hours, carefully checking resp status in that time. IN addition, will obtain BMP to see if that helped the GFR. 03/08 - minor improvement in GFR, 2 units PRBCs today. 03/09 - continue gentle hydration 03/10 - DC IVF today. ACUTE ON CHRONIC RENAL FAILURE 03/07 - GFR still hovering in low 20s. needs fluids but we are held up because of the respiratory distress. see above. 03/08 - last creat in clinic was around 1.5. do not believe we are going to get better than where we are. cont gentle hydration for now. 03/09 - no improvement, believe this is the new baseline. will need close monitoring as an outpatient. 03/10 - no improvement. DC IVF. check again in AM. will change the abx to Rocephin. SINUS TACHYCARDIA PACS AND PVCS 03/07 - low dose BB today as we are concerned he will go into a fib. Dr Green kindly consulting. Suspect the sinus tachy is also related to dehydration and/ or sepsis picture. 03/08 - pt did have an episode of a fib. placed on BB and Eliquis. 03/09 - no further events. HTN 03/07 - holding meds for now d/t sinus tach and overall low BP. DMT2 03/07 - on SSI, holding levemir for now. will add levemir 20 units tonight to assist in BS control. 03/08 - marginal control of BS. 03/09 - slightly improved. CHRONIC DEBILITY 03/07 - fair prognosis. likely to require SNF at dc. 03/09 [facility] plan for [facility] to LT[facility] or SNF this week. will need full hospital staffing to arrange. 03/10 - planning to DC to [facility] tomorrow pending formal acceptance. CODE STATUS: per nursing note on 03/06, pt states he is a full code and wants everything done. DVT PROPH: Renally dosed lovenox GI PROPH: Pepcid Clinical Quality Measures DVT/VTE Risk/Contraindication: Risk Factor Score Per Nursin RFS Level Per Nursing on Admit: 4+=Very High CARMENZA ROWE MD Mar 10, 2017 2:33 pm
[2017-03-10] MEDS ORDERED: APIX2.5T PO (14:35)
--- NOTE | 2017-03-10 15:15 | Discharge Inst-Skilled Nursing ---
Discharge Inst-Skilled NF Patient Instructions Patient Problems: ACUTE RESPIRATORY FAILURE BILATERAL PNEUMONIA VOLUME OVERLOAD CONTRIBUTING TO PULMONARY EDEMA ACUTE ON CHRONIC RENAL FAILURE SINUS TACHYCARDIA PACS AND PVCS HTN DMT2 CHRONIC DEBILITY Goal: IMPROVEMENT IN ABILITY TO PERFORM ADL'S INDEPENDENTLY Patient Instructions: PLEASE FOLLOW UP WITH YOUR PCP SCHEDULED. PLEASE FOLLOW UP WITH YOUR NEW MEDICATION REGIMEN PRESCRIBED. Consult/Follow Up/Orders Certifications SNF I certify that SNF services are required to be given on an inpatient basis because of the above named patient's need for group home care on a continuing basis for the conditions(s) for which he/she was receiving inpatient hospital services prior to his/her transfer to the SNF. Custodial Facility Order: Nursing Services, Floor Polisher-Evaluate & Treat, Physical Therapy-Evaluate & Treat, Wound Care-Eval/Treat Discharge Diet: Low Sodium Diet, ADA Diet Daily Activity as Tolerated: Yes New & Resume Previous Orders Other Instructions PLEASE FOLLOW A LOW SALT, LOW POTASSIUM DIET. Discharge Medications New, Converted or Re-Newed RX: Other New Medications: Apixaban (Eliquis) 2.5 Mg Tablet 2.5 MG PO BID, #60 TAB 1 Refill Continued Medications: Acetaminophen (Tylenol Extra Strength) 500 Mg Tablet 1000 MG PO TID, TAB TAKES 2 (500MG) TABLETS Amlodipine Besylate (Amlodipine Besylate) 5 Mg Tablet 5 MG PO DAILY, TAB Insulin Aspart (Novolog Flexpen) 300 Units/3 Ml Solution 4 UNITS SQ AC, EA Insulin Detemir (Levemir Flextouch) 100 Unit/1 Ml Insuln.pen 20 UNIT SQ HS, EA Loperamide HCl (Loperamide) 2 Mg Tablet PO UD PRN for DIARRHEA, TAB Multivits-Minerals/FA/Lycopene (One Daily For Men Tablet) 1 Each Tablet 0.5 TAB PO BID, TAB Discontinued Medications: Ibuprofen (Advil) 200 Mg Tablet 400 MG PO HS, TAB TAKES 2 (200MG) TABLETS Ibuprofen (Advil) 200 Mg Tablet 200 MG PO 0800,1700, TAB Lisinopril (Lisinopril) 20 Mg Tablet 20 MG PO DAILY, TAB [place] Mar 10, 2017 14:35 Copy Copies To 1: DEJAH RIVERA MD, JULIE A MD Mar 10, 2017 2:36 pm
[2017-03-10] MEDS: ACETAMINOPHEN 325 MG TABLET/CAPLET (TYLENOL) PO PRN (20:54)
[2017-03-11 05:41] LABS: MEAN PLATELET VOLUME 11.6 FL (7.4-10.4); RED BLOOD COUNT 3.75 10^6/uL (4.35-5.85); RED CELL DISTRIBUTION WIDTH 21.3 % (10.0-14.5); WHITE BLOOD COUNT 12.3 10^3/uL (4.3-11.0)
[2017-03-11 06:06] LABS: CALCIUM 7.7 MG/DL (8.5-10.1); CREATININE SERUM 2.28 MG/DL (0.60-1.30); POTASSIUM 3.8 MMOL/L (3.6-5.0)
[2017-03-11] MEDS: inSUlin ASPART (NovoLOG) 1 UNIT/0.01 ML (CHARGE PER UNIT) SC SCH ×4 (06:09→20:53)
[2017-03-11] MEDS: PANTOPRAZOLE 40 MG (PROTONIX) TAB PO SCH (06:25)
[2017-03-11] MEDS: RT-LEVALBUTEROL (XOPENEX) 1.25 MG/3 ML NEB NON-FORMULARY INH SCH ×3 (07:27→18:45)
[2017-03-11 08:00] VITALS: BP 160/72
[2017-03-11] MEDS: meTOprolol TARTRATE 50 MG (LOPRESSOR) TAB PO SCH ×2 (08:27→20:54)
[2017-03-11] MEDS: cefTRIAXone INJECTION 1,000 MG in NS (IVPB) 50 ML IV SCH (08:27)
[2017-03-11] MEDS: SIMETHICONE 80 MG (MYLICON) CHEW PO SCH ×4 (08:27→20:54)
[2017-03-11] MEDS: APIXABAN 2.5 MG (ELIQUIS) TABLET PO SCH ×2 (08:27→20:54)
--- NOTE | 2017-03-11 09:09 | Progress Note-Cardiology ---
Cardiology SOAP Progress Note Subjective: Sitting up in a chair at the bedside. C/O shortness of breath. No c/o CP, palpitations. Objective: I&O/Vital Signs Vital Sign - Last 12Hours 03/11/17 03/11/17 03/11/17 03/11/17 07:29 07:40 08:00 08:15 Temp 99.4 Pulse 110 114 Resp 24 B/P (MAP) 160/72 (101) Pulse Ox 93 94 O2 Delivery Room Air Room Air Room Air 03/11/17 12:54 Pulse 99 Intake and Output 03/11/17 00:00 Intake Total 1740 ml Output Total 1675 ml Balance 65 ml Weight (Pounds): 218 Weight (Ounces): 8.0 Weight (Calculated Kilograms): 99.706617 Constitutional: appears stated age, AAO x 3, well-nourished Respiratory: No accessory muscle use, No respiratory distress, chest expansion is symmetric, chest is bilaterally symmetric, crackles (lower lobes bilat), wheezing (exp wheezes), other (dyspnea with conversation) Gastrointestional: No tender, soft, audible bowel sounds Extremities: no lower extremity edema bilateral Neurologic/Psychiatric: grossly intact Skin: No rash, No ulcerations Results/Procedures: Labs Laboratory Tests 03/10/17 16:13: Glucometer 174H 03/10/17 20:20: Glucometer 260H 03/11/17 05:28: White Blood Count 12.3H, Red Blood Count 3.75L, Hemoglobin 9.8L, Hematocrit 31L , Mean Corpuscular Volume 82, Mean Corpuscular Hemoglobin 26, Mean Corpuscular Hemoglobin Concent 32, Red Cell Distribution Width 21.3H, Platelet Count 514H, Mean Platelet Volume 11.6H, Sodium Level 140, Potassium Level 3.8, Chloride Level 112H, Carbon Dioxide Level 16L, Anion Gap 12, Blood Urea Nitrogen 30H, Creatinine 2.28H, Estimat Glomerular Filtration Rate 27, BUN/Creatinine Ratio 13 , Glucose Level 161H, Calcium Level 7.7L 03/11/17 11:16: Glucometer 265H Microbiology 03/09/17 Influenza Types A,B Antigen (MORGAN) - Final, Complete 03/05/17 Urine Culture - Final, Complete Klebsiella Pneumoniae A/P: Assessment: PAF, first documented on 03/09/17 Probable septicemia with borderline septic shock Acute renal failure - Cr somewhat better Echo of 03/06/17: Normal LVEF (55-60%), normal PASP, no significant valvular heart disease Pneumonia - management per medical services UTI - management per medical services DM 2 - management per medical services HTN Anemia of undetermined etiology - medical services managing Chronic urinary incontinence H/o chronic NSAID use H/o right great toe amputation in 2015 Plan: Complex management issue PAF Continue BB for rate control Apixaban (dose adjusted for Cr Cl and age) for stroke prophylaxis Follow labs closely CXR today Physician Assessment Physician Assessment Notes gen malaise and tiredness. Denies cp or palp or syncope or shortness of breath Lungs: fair to good air entry, diminished at the bases Cor: irreg Ext: no c/c/e A&R * As documented in our note above that I updated (italics) and as noted below * I discussed with him in detail his CV issues and our treatment strategy * I answered his CV-related questions JENNIFER CASTELLANOS Mar 11, 2017 09:09 NATALI RILEY MD FACP [facility] Mar 11, 2017 13:09
--- NOTE | 2017-03-11 09:58 | Diagnostic Imaging Report ---
Clinical indication: Patient with dyspnea. Exam: Chest x-ray PA and lateral views. Comparisons: Chest x-ray dated 03/07/2017. Findings: Given the differences in imaging technique, there is relatively stable small to moderate amount of patchy infiltrate in the left lung base. There is increased right midlung field infiltrate. There is slight improved aeration of the right lung base. Is blunting of both costophrenic angle regions consistent with small pleural effusions. Stable mild cardiomegaly and mildly prominent pulmonary vasculature. There are degenerative spurs involving the thoracic spine. IMPRESSION: 1: There is progression of right mid lung field infiltrate and slight improved aeration of the right lung base. 2: There is stable left lung base infiltrate. 3: Small bilateral pleural effusions which are likely stable. 4: Stable mild cardiomegaly and pulmonary vascular congestion. Dictated by: Dictated on workstation # [id number]
--- NOTE | 2017-03-11 12:40 | Progress Note (SOAP) ---
Subjective Subjective/Events-last exam Pt continues to complain of shortness of breath. However, his most prominent concern is that he needs to get home to pay his bills and also to obtain his certificate, which he states took him over a year to obtain. Review of Systems Date Seen by Provider: Mar 11, 2017 Time Seen by Provider: 09:00 Pulmonary: Dyspnea, Cough Cardiovascular: No: Chest Pain Objective Exam Last Set of Vital Signs Vital Signs Date Time Temp Pulse Resp B/P (MAP) Pulse Ox O2 Delivery O2 Flow Rate FiO2 03/11/17 08:15 Room Air 03/11/17 08:00 99.4 114 24 160/72 (101) 94 03/09/17 04:00 25.00 5.00 03/08/17 20:55 25 Capillary Refill : Less Than 3 Seconds I&O Intake and Output 03/11/17 00:00 Intake Total 3140 ml Output Total 2125 ml Balance 1015 ml Intake Oral 2040 ml IV Total 1100 ml Output Urine Total 2125 ml # Bowel Movements 5 General: Alert, Oriented X3, Cooperative, Mild Distress (dyspneic but completes full sentances) Lungs: Other (wheezing bilaterally, goo doeffort) Heart: Regular Rate, Normal S1, Normal S2, No Murmurs, Gallops, Rubs Abdomen: Normal Bowel Sounds, Soft, No Tenderness, No Hepatosplenomegaly, No Masses Extremities: No Clubbing, No Cyanosis, No Edema Neuro: Normal Speech Psych/Mental Status: Mental Status NL, Mood NL Results/Procedures Lab Laboratory Tests 03/10/17 16:13: Glucometer 174H 03/10/17 20:20: Glucometer 260H 03/11/17 05:28: White Blood Count 12.3H, Red Blood Count 3.75L, Hemoglobin 9.8L, Hematocrit 31L , Mean Corpuscular Volume 82, Mean Corpuscular Hemoglobin 26, Mean Corpuscular Hemoglobin Concent 32, Red Cell Distribution Width 21.3H, Platelet Count 514H, Mean Platelet Volume 11.6H, Sodium Level 140, Potassium Level 3.8, Chloride Level 112H, Carbon Dioxide Level 16L, Anion Gap 12, Blood Urea Nitrogen 30H, Creatinine 2.28H, Estimat Glomerular Filtration Rate 27, BUN/Creatinine Ratio 13 , Glucose Level 161H, Calcium Level 7.7L 03/11/17 11:16: Glucometer 265H Microbiology 03/09/17 Influenza Types A,B Antigen (MORGAN) - Final, Complete 03/05/17 Urine Culture - Final, Complete Klebsiella Pneumoniae Radiology NAME: MAGDA WALLS [facility] REC#: [id number] PT STATUS: ADM IN : 1930 PHYSICIAN: ELLE MARTIN DO ADMIT DATE: 03/05/17/ICU Draft Date of Exam:03/06/17 CHEST 1 VIEW, AP/PA ONLY EXAMINATION: Portable upright radiograph of the chest. INDICATION: Shortness of breath. FINDINGS: There are increasing patchy infiltrates in the lung bases and right perihilar region and suggestion of increased vascular congestion. The heart size is borderline. There are probable tiny bilateral effusions. No pneumothorax. IMPRESSION: Increasing vascular congestion and bibasilar patchy infiltrates or atelectasis. Dictated on workstation # [id number] Dict: 03/06/17 1151 Trans: 03/06/17 1156 [facility] [id number] Interpreted by: GISSEL MARTIN MD Electronically signed by: Assessment/Plan Assessment/Plan Plan ACUTE RESPIRATORY FAILURE BILATERAL PNEUMONIA 03/07 - patient currently on vapotherm, still short of breath. Resp cx is usual lauren. on Zosyn for UTI, will also give good pulm coverage if necessary. on levalbuterol q6h. will also encourage IS in the event there is some atelectasis developing. 03/08 - pt still on vapotherm. holding steroids as does not appear to have COPD by hx. on zosyn. 03/09 - now on 4LPM NC. cont levalbuterol for now. 03/10 - will plan for referral to NH. decrease levalbuterol dose for now. 03/11 - CXR shows increasing infiltrate, but pt has been on Zosyn. suspect these are more related to pulm venous congestion. we cannot use lasix due to his renal status. VOLUME OVERLOAD CONTRIBUTING TO PULMONARY EDEMA 03/07 - pt appears dehydrated to me today. will obtain CXR to see if it has improved. I am goign to give a slow bolus of 1L over 5 hours, carefully checking resp status in that time. IN addition, will obtain BMP to see if that helped the GFR. 03/08 - minor improvement in GFR, 2 units PRBCs today. 03/09 - continue gentle hydration 03/10 - DC IVF today. 03/11 - have DC'd IVF. no lasix due to his tenuous renal status. ACUTE ON CHRONIC RENAL FAILURE 03/07 - GFR still hovering in low 20s. needs fluids but we are held up because of the respiratory distress. see above. 03/08 - last creat in clinic was around 1.5. do not believe we are going to get better than where we are. cont gentle hydration for now. 03/09 - no improvement, believe this is the new baseline. will need close monitoring as an outpatient. 03/10 - no improvement. DC IVF. check again in AM. will change the abx to Rocephin. 03/11 - plan for second dose of rocephin today. kidneys ever so slightly improved. SINUS TACHYCARDIA PACS AND PVCS 03/07 - low dose BB today as we are concerned he will go into a fib. Dr Green kindly consulting. Suspect the sinus tachy is also related to dehydration and/ or sepsis picture. 03/08 - pt did have an episode of a fib. placed on BB and Eliquis. 03/09 - no further events. HTN 03/07 - holding meds for now d/t sinus tach and overall low BP. DMT2 03/07 - on SSI, holding levemir for now. will add levemir 20 units tonight to assist in BS control. 03/08 - marginal control of BS. 03/09 - slightly improved. 03/11 - holding steady CHRONIC DEBILITY 03/07 - fair prognosis. likely to require SNF at dc. [facility] or SN[facility] this week. will need full hospital staffing to arrange. 03/10 - planning to DC to shelter tomorrow pending formal acceptance. CODE STATUS: per nursing note on 03/06, pt states he is a full code and wants everything done. DVT PROPH: Renally dosed lovenox GI PROPH: Pepcid DISPO: 03/11 - Spoke to patient at length with Talib Campos present. Magda states that he "doesn't care where he goes" as long as he gets to stop by his house. He does not have any insurance other than his [place] benefits. I did explain to him that he is very ill and that his kidneys and lungs are fighting against each other. He states he is willing to do hospice so long as he gets to go home. 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 So, for now, we are going to pursue this option. Of note, his second cousin, Aminah, was present yesterday. Talib and I had discussed his case with her since she had his password. However, this morning, Magda was very clear that he does not want her to make any decisions for him and called her a "dingbat." He requested that we change his password so that she was not able to find out everything about his care. He did tell us that he does not want to be intubated whatsoever and that he does not want compressions or a code. We discussed that this was not in his best interest as he would likely require prolonged life support, and he did not want that at all. I have written a DNR order reflective of his wishes. Clinical Quality Measures DVT/VTE Risk/Contraindication: Risk Factor Score Per Nursin RFS Level Per Nursing on Admit: 4+=Very High CAREMNZA ROWE MD Mar 11, 2017 12:40
[2017-03-11 16:20] VITALS: BP 161/75
[2017-03-11 20:21] VITALS: BP 140/73
[2017-03-11] MEDS: ACETAMINOPHEN 325 MG TABLET/CAPLET (TYLENOL) PO PRN (20:54)
[2017-03-12] VITALS: BP 118/60
[2017-03-12 04:00] VITALS: BP 120/62
[2017-03-12 05:51] LABS: MEAN PLATELET VOLUME 11.7 FL (7.4-10.4); RED BLOOD COUNT 3.58 10^6/uL (4.35-5.85); RED CELL DISTRIBUTION WIDTH 21.1 % (10.0-14.5); WHITE BLOOD COUNT 11.6 10^3/uL (4.3-11.0)
[2017-03-12 06:12] LABS: CALCIUM 7.7 MG/DL (8.5-10.1); CREATININE SERUM 2.11 MG/DL (0.60-1.30); POTASSIUM 3.8 MMOL/L (3.6-5.0)
[2017-03-12] MEDS: inSUlin ASPART (NovoLOG) 1 UNIT/0.01 ML (CHARGE PER UNIT) SC SCH ×2 (06:15→12:05)
[2017-03-12] MEDS: PANTOPRAZOLE 40 MG (PROTONIX) TAB PO SCH (06:16)
[2017-03-12] MEDS: RT-LEVALBUTEROL (XOPENEX) 1.25 MG/3 ML NEB NON-FORMULARY INH SCH (07:30)
[2017-03-12 08:00] VITALS: BP 137/63
[2017-03-12] MEDS: meTOprolol TARTRATE 50 MG (LOPRESSOR) TAB PO SCH (08:23)
[2017-03-12] MEDS: SIMETHICONE 80 MG (MYLICON) CHEW PO SCH ×2 (08:23→12:04)
[2017-03-12] MEDS: APIXABAN 2.5 MG (ELIQUIS) TABLET PO SCH (08:23)
[2017-03-12] MEDS: cefTRIAXone INJECTION 1,000 MG in NS (IVPB) 50 ML IV SCH (08:23)
--- NOTE | 2017-03-12 10:21 | Progress Note-Cardiology ---
Cardiology SOAP Progress Note Subjective: No new c/o. Continues to feel SOA. Wants to go home today. No c/o CP, palpitations. C/O gen weakness. Objective: I&O/Vital Signs Vital Sign - Last 12Hours 03/12/17 03/12/17 03/12/17 03/12/17 00:00 01:10 04:00 07:02 Temp 99.0 98.9 Pulse 98 80 100 102 Resp 38 28 B/P (MAP) 118/60 (79) 120/62 (81) Pulse Ox 93 93 O2 Delivery Room Air Room Air 03/12/17 03/12/17 08:00 08:00 Temp 99.3 Pulse 109 Resp 18 B/P (MAP) 137/63 (87) Pulse Ox 96 O2 Delivery Room Air Room Air Intake and Output 03/12/17 00:00 Intake Total 1000 ml Output Total 300 ml Balance 700 ml Weight (Pounds): 220 Weight (Ounces): 3.0 Weight (Calculated Kilograms): 99.248637 Constitutional: appears stated age, AAO x 3, well-nourished Respiratory: No accessory muscle use, No respiratory distress, chest expansion is symmetric, chest is bilaterally symmetric, crackles (lower lobes bilat), wheezing (exp wheezes), other (dyspnea with conversation) Cardiovascular: regular rate-rhythm, No JVD, S1 and S2, systolic murmur Gastrointestional: No tender, soft, audible bowel sounds Extremities: no lower extremity edema bilateral Neurologic/Psychiatric: grossly intact Skin: No rash, No ulcerations Results/Procedures: Labs Laboratory Tests 03/11/17 11:16: Glucometer 265H 03/11/17 16:01: Glucometer 140H 03/11/17 20:20: Glucometer 229H 03/12/17 05:38: White Blood Count 11.6H, Red Blood Count 3.58L, Hemoglobin 9.4L, Hematocrit 29L , Mean Corpuscular Volume 82, Mean Corpuscular Hemoglobin 26, Mean Corpuscular Hemoglobin Concent 32, Red Cell Distribution Width 21.1H, Platelet Count 463H, Mean Platelet Volume 11.7H, Sodium Level 140, Potassium Level 3.8, Chloride Level 112H, Carbon Dioxide Level 16L, Anion Gap 12, Blood Urea Nitrogen 31H, Creatinine 2.11H, Estimat Glomerular Filtration Rate 30, BUN/Creatinine Ratio 15 , Glucose Level 169H, Calcium Level 7.7L Microbiology 03/09/17 Influenza Types A,B Antigen (MORGAN) - Final, Complete 03/05/17 Urine Culture - Final, Complete Klebsiella Pneumoniae Laboratory Tests 03/11/17 05:28 03/12/17 05:38 A/P: Assessment: PAF, first documented on 03/09/17 Probable septicemia with borderline septic shock - management per medical services Acute renal failure - Cr continues to improve Echo of 03/06/17: Normal LVEF (55-60%), normal PASP, no significant valvular heart disease Pneumonia - management per medical services UTI - management per medical services DM 2 - management per medical services HTN Anemia of undetermined etiology - medical services managing Chronic urinary incontinence H/o chronic NSAID use H/o right great toe amputation in 2015 Plan: Complex management issue PAF Continue current medications Apixaban (dose adjusted for Cr Cl and age) for stroke prophylaxis He is to be discharged home today with Hospice care per medical services and pt wishes JENNIFER CASTELLANOS Mar 12, 2017 10:21
[2017-03-12 12:00] VITALS: BP 132/78
--- NOTE | 2017-03-12 12:05 | Discharge Summary ---
Diagnosis/Chief Complaint Date of Admission Mar 05, 2017 at 1:35 pm Date of Discharge March 12, 2017 Admission Diagnosis Admission Diagnosis ACUTE RESPIRATORY FAILURE BILATERAL PNEUMONIA VOLUME OVERLOAD CONTRIBUTING TO PULMONARY EDEMA ACUTE ON CHRONIC RENAL FAILURE SINUS TACHYCARDIA PACS AND PVCS HTN DMT2 CHRONIC DEBILITY Discharge Diagnosis ACUTE RESPIRATORY FAILURE BILATERAL PNEUMONIA 03/07 - patient currently on vapotherm, still short of breath. Resp cx is usual lauren. on Zosyn for UTI, will also give good pulm coverage if necessary. on levalbuterol q6h. will also encourage IS in the event there is some atelectasis developing. 03/08 - pt still on vapotherm. holding steroids as does not appear to have COPD by hx. on zosyn. 03/09 - now on 4LPM NC. cont levalbuterol for now. 03/10 - will plan for referral to NH. decrease levalbuterol dose for now. 03/11 - CXR shows increasing infiltrate, but pt has been on Zosyn. suspect these are more related to pulm venous congestion. we cannot use lasix due to his renal status. VOLUME OVERLOAD CONTRIBUTING TO PULMONARY EDEMA 03/07 - pt appears dehydrated to me today. will obtain CXR to see if it has improved. I am goign to give a slow bolus of 1L over 5 hours, carefully checking resp status in that time. IN addition, will obtain BMP to see if that helped the GFR. 03/08 - minor improvement in GFR, 2 units PRBCs today. 03/09 - continue gentle hydration 03/10 - DC IVF today. 03/11 - have DC'd IVF. no lasix due to his tenuous renal status. ACUTE ON CHRONIC RENAL FAILURE 03/07 - GFR still hovering in low 20s. needs fluids but we are held up because of the respiratory distress. see above. 03/08 - last creat in clinic was around 1.5. do not believe we are going to get better than where we are. cont gentle hydration for now. 03/09 - no improvement, believe this is the new baseline. will need close monitoring as an outpatient. 03/10 - no improvement. DC IVF. check again in AM. will change the abx to Rocephin. 03/11 - plan for second dose of rocephin today. kidneys ever so slightly improved. SINUS TACHYCARDIA PACS AND PVCS 03/07 - low dose BB today as we are concerned he will go into a fib. Dr Green kindly consulting. Suspect the sinus tachy is also related to dehydration and/ or sepsis picture. 03/08 - pt did have an episode of a fib. placed on BB and Eliquis. 03/09 - no further events. HTN 03/07 - holding meds for now d/t sinus tach and overall low BP. DMT2 03/07 - on SSI, holding levemir for now. will add levemir 20 units tonight to assist in BS control. 03/08 - marginal control of BS. 03/09 - slightly improved. 03/11 - holding steady CHRONIC DEBILITY 03/07 - fair prognosis. likely to require SNF at dc. [facility] SN[facility] this week. will need full hospital staffing to arrange. 03/10 - planning to DC to skilled nursing tomorrow pending formal acceptance. CODE STATUS: per nursing note on 03/06, pt states he is a full code and wants everything done. DVT PROPH: Renally dosed lovenox GI PROPH: Pepcid DISPO: 03/11 - Spoke to patient at length with Talib Campos present. Magda states that he "doesn't care where he goes" as long as he gets to stop by his house. He does not have any insurance other than his [place] benefits. I did explain to him that he is very ill and that his kidneys and lungs are fighting against each other. He states he is willing to do hospice so long as he gets to go home. 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 So, for now, we are going to pursue this option. Of note, his second cousin, Aminah, was present yesterday. Talib and I had discussed his case with her since she had his password. However, this morning, Magda was very clear that he does not want her to make any decisions for him and called her a "dingbat." He requested that we change his password so that she was not able to find out everything about his care. He did tell us that he does not want to be intubated whatsoever and that he does not want compressions or a code. We discussed that this was not in his best interest as he would likely require prolonged life support, and he did not want that at all. I have written a DNR order reflective of his wishes. DAY OF DISCHARGE: We were able to get approval through the [place] for the hospice company. Magda's parting words to me were "get me out of here" and "just get me home" so I do believe we are all on the same page in terms of his wishes. WE will DC most of his regular meds except those related to his comfort. The hospice physician will manage comfort meds upon discharge. Chief Complaint/HPI Chief Complaint/HPI HPI: This is an 86-year-old white male clinic patient a [facility] with a past medical history of diabetes and hypertension the presents to the emergency room after unable to tolerate oral intake for the past several days with nausea. He was found to have creatinine of 2.7 and dehydrated on clinical exam and bilateral pneumonia so he was placed on Rocephin and Zithromax IV fluids and oxygen supplementation along with nebulizer treatments and was admitted to fourth floor. I visited with the patient this morning he is requiring Vapotherm and wheezing on exam and just overall appears to be declining so as a precaution I am sending him up to cardiac stepdown unit obtaining ABG repeat chest x-ray checking BNP ordering echocardiogram and consulting cardiology. I have held all of his home medications because of mild hypotension that I had given IV fluid resuscitation for last night. Overall he appears to have a very poor prognosis just overall decline status and we are obtaining his living well and whether or not he is a full code or DO NOT RESUSCITATE patient. Discharge Summary-Simple/Stand Consultations Discharge Physical Examination Allergies: Coded Allergies: No Known Drug Allergies (Unverified , 03/05/17) Vitals & I&Os Vital Sign - Last 12Hours Date Time Temp Pulse Resp B/P (MAP) Pulse Ox O2 Delivery O2 Flow Rate FiO2 03/12/17 08:00 Room Air 03/12/17 08:00 99.3 109 18 137/63 (87) 96 03/09/17 04:00 25.00 5.00 03/08/17 20:55 25 Intake and Output 03/12/17 00:00 Intake Total 1000 ml Output Total 300 ml Balance 700 ml General Appearance: Alert, Oriented X3, Cooperative, Mild Distress Respiratory: Other (wheezing bilaterally, tachypenic, good effort) Cardiovascular: Regular Rate, Normal S1, Normal S2, No Murmurs, Gallops, Rubs Abdominal: Normal Bowel Sounds, Soft, No Tenderness, No Hepatosplenomegaly, No Masses Extremities: No Clubbing, No Cyanosis, No Edema Neuro: Normal Speech Psych/Mental Status: Mental Status NL, Mood NL Hospital Course See final discharge diagnosis. Labs Laboratory Tests Test 03/09/17 15:43 03/09/17 20:35 03/10/17 04:41 03/10/17 05:39 Range/Units Glucometer 233 H 216 H 148 H 70-110 MG/DL White Blood Count 10.7 4.3-11.0 10^3/uL Red Blood Count 3.57 L 4.35-5.85 10^6/uL Hemoglobin 9.3 L 13.3-17.7 G/DL Hematocrit 29 L 40-54 % Mean Corpuscular Volume 81 80-99 FL Mean Corpuscular Hemoglobin 26 25-34 PG Mean Corpuscular Hemoglobin Concent 32 32-36 G/DL Red Cell Distribution Width 20.8 H 10.0-14.5 % Platelet Count 401 H 130-400 10^3/uL Mean Platelet Volume 11.7 H 7.4-10.4 FL Sodium Level 141 135-145 MMOL/L Potassium Level 3.9 3.6-5.0 MMOL/L Chloride Level 115 H 98-107 MMOL/L Carbon Dioxide Level 14 L 21-32 MMOL/L Anion Gap 12 5-14 MMOL/L Blood Urea Nitrogen 35 H 7-18 MG/DL Creatinine 2.40 H 0.60-1.30 MG/DL Estimat Glomerular Filtration Rate 26 BUN/Creatinine Ratio 15 Glucose Level 165 H 70-105 MG/DL Calcium Level 7.2 L 8.5-10.1 MG/DL Test 03/10/17 11:51 03/10/17 16:13 03/10/17 20:20 03/11/17 05:28 Range/Units Glucometer 219 H 174 H 260 H 70-110 MG/DL White Blood Count 12.3 H 4.3-11.0 10^3/uL Red Blood Count 3.75 L 4.35-5.85 10^6/uL Hemoglobin 9.8 L 13.3-17.7 G/DL Hematocrit 31 L 40-54 % Mean Corpuscular Volume 82 80-99 FL Mean Corpuscular Hemoglobin 26 25-34 PG Mean Corpuscular Hemoglobin Concent 32 32-36 G/DL Red Cell Distribution Width 21.3 H 10.0-14.5 % Platelet Count 514 H 130-400 10^3/uL Mean Platelet Volume 11.6 H 7.4-10.4 FL Sodium Level 140 135-145 MMOL/L Potassium Level 3.8 3.6-5.0 MMOL/L Chloride Level 112 H 98-107 MMOL/L Carbon Dioxide Level 16 L 21-32 MMOL/L Anion Gap 12 5-14 MMOL/L Blood Urea Nitrogen 30 H 7-18 MG/DL Creatinine 2.28 H 0.60-1.30 MG/DL Estimat Glomerular Filtration Rate 27 BUN/Creatinine Ratio 13 Glucose Level 161 H 70-105 MG/DL Calcium Level 7.7 L 8.5-10.1 MG/DL Test 03/11/17 11:16 03/11/17 16:01 03/11/17 20:20 03/12/17 05:38 Range/Units Glucometer 265 H 140 H 229 H 70-110 MG/DL White Blood Count 11.6 H 4.3-11.0 10^3/uL Red Blood Count 3.58 L 4.35-5.85 10^6/uL Hemoglobin 9.4 L 13.3-17.7 G/DL Hematocrit 29 L 40-54 % Mean Corpuscular Volume 82 80-99 FL Mean Corpuscular Hemoglobin 26 25-34 PG Mean Corpuscular Hemoglobin Concent 32 32-36 G/DL Red Cell Distribution Width 21.1 H 10.0-14.5 % Platelet Count 463 H 130-400 10^3/uL Mean Platelet Volume 11.7 H 7.4-10.4 FL Sodium Level 140 135-145 MMOL/L Potassium Level 3.8 3.6-5.0 MMOL/L Chloride Level 112 H 98-107 MMOL/L Carbon Dioxide Level 16 L 21-32 MMOL/L Anion Gap 12 5-14 MMOL/L Blood Urea Nitrogen 31 H 7-18 MG/DL Creatinine 2.11 H 0.60-1.30 MG/DL Estimat Glomerular Filtration Rate 30 BUN/Creatinine Ratio 15 Glucose Level 169 H 70-105 MG/DL Calcium Level 7.7 L 8.5-10.1 MG/DL Test 03/12/17 11:20 Range/Units Glucometer 273 H 70-110 MG/DL Radiology Reviewed NAME: MAGDA WALLS MED REC#: [id number] PT STATUS: ADM IN : 1930 PHYSICIAN: ELLE MARTIN DO ADMIT DATE: 03/05/17/ICU Draft Date of Exam:03/06/17 CHEST 1 VIEW, AP/PA ONLY EXAMINATION: Portable upright radiograph of the chest. INDICATION: Shortness of breath. FINDINGS: There are increasing patchy infiltrates in the lung bases and right perihilar region and suggestion of increased vascular congestion. The heart size is borderline. There are probable tiny bilateral effusions. No pneumothorax. IMPRESSION: Increasing vascular congestion and bibasilar patchy infiltrates or atelectasis. Dictated on workstation # [id number] Dict: 03/06/17 1151 Trans: 03/06/17 1156 [facility] [id number] Interpreted by: GISSEL MARTIN MD Electronically signed by: Discharge Instructions to patient/family Please see electronic discharge instructions given to patient. Discharge Medications Reviewed and agree with Discharge Medication list on patient's Discharge Instruction sheet Clinical Quality Measures DVT/VTE Risk/Contraindication: Risk Factor Score Per Nursin RFS Level Per Nursing on Admit: 4+=Very High Copy Copies To 1: DEJAH RIVERA MD, JULIE A MD Mar 12, 2017 12:05 pm
--- NOTE | 2017-03-12 12:05 | Discharge Instructions ---
Discharge [facility] Discharge Medications Continued Medications: Acetaminophen (Tylenol Extra Strength) 500 Mg Tablet 1000 MG PO TID, TAB TAKES 2 (500MG) TABLETS Insulin Aspart (Novolog Flexpen) 300 Units/3 Ml Solution 4 UNITS SQ AC, EA Insulin Detemir (Levemir Flextouch) 100 Unit/1 Ml Insuln.pen 20 UNIT SQ HS, EA Loperamide HCl (Loperamide) 2 Mg Tablet PO UD PRN for DIARRHEA, TAB Multivits-Minerals/FA/Lycopene (One Daily For Men Tablet) 1 Each Tablet 0.5 TAB PO BID, TAB Discontinued Medications: Amlodipine Besylate (Amlodipine Besylate) 5 Mg Tablet 5 MG PO DAILY, TAB Ibuprofen (Advil) 200 Mg Tablet 400 MG PO HS, TAB TAKES 2 (200MG) TABLETS Ibuprofen (Advil) 200 Mg Tablet 200 MG PO 0800,1700, TAB Lisinopril (Lisinopril) 20 Mg Tablet 20 MG PO DAILY, TAB Patient Instructions Goal/Follow Up Appt: YOU ARE GOING HOME WITH HOSPICE CARE. YOU DO NOT NEED TO FOLLOW UP WITH DR RIVERA UNLESS YOU WANT TO. PLEASE CALL THE CLINIC IF YOU NEED ANYTHING. Patient Instructions: YOU WILL HAVE A HOSPICE NURSE COME TO SUPPORT YOU. PLEASE FOLLOW THEIR RECOMMENDATIONS. YOUR MEDICATIONS WILL BE MANAGED BY THE HOSPICE PHYSICIAN. Return to The Hospital For: PLEASE CALL THE ON-CALL HOSPICE NURSE IF YOU NEED ANYTHING. Activity & Diet Discharge Diet: No Restrictions Activity as Tolerated: Yes Copy Copies To 1: DEJAH RIVERA MD, JULIE A MD Mar 12, 2017 12:05 pm
[2017-03-12 15:07] VITALS: BP 132/78
== END 2017-03-12 15:13 | disposition hospice, home (50) | DRG 871 ==
LOC: EDUNIT# 11:00 → ER 11:02 → 4TH 13:35 → ICU 03-06 11:15 → 4TH 03-09 14:41
PROVIDERS: ADMIT Internal Medicine; ATTEND Internal Medicine
DX: A41.9 Sepsis, unspecified organism (principal); J18.9 Pneumonia, unspecified organism; J96.00 Acute respiratory failure, unspecified whether with hypoxia or hypercapnia; N17.9 Acute kidney failure, unspecified; N39.0 Urinary tract infection, site not specified; E86.0 Dehydration; D64.9 Anemia, unspecified; I12.9 Hypertensive chronic kidney disease with stage 1 through stage 4 chronic kidney disease, or unspecified chronic kidney disease; Z66 Do not resuscitate; J81.1 Chronic pulmonary edema; N18.9 Chronic kidney disease, unspecified; E87.70 Fluid overload, unspecified; E11.22 Type 2 diabetes mellitus with diabetic chronic kidney disease; R32 Unspecified urinary incontinence; I49.3 Ventricular premature depolarization; I49.1 Atrial premature depolarization; I48.0 Paroxysmal atrial fibrillation; R53.81 Other malaise; Z87.891 Personal history of nicotine dependence; Z89.421 Acquired absence of other right toe(s); Z79.4 Long term (current) use of insulin
CPT/HCPCS: 36415; 51702; 70450; 71010; 71020; 80048; 80053; 81000; 82150; 82274; 82805; 82962; 83605; 83690; 83735; 84443; 84484; 85007; 85014; 85018; 85025; 85027; 85379; 85610; 85730; 86850; 86900; 86901; 86920; 87070; 87077; 87088; 87186; 87205; 87804; 93005; 93041; 93306; 94640; 94664; 94760; 96361; 96365

== ENCOUNTER 2017-03-19 08:20 | Emergency (ER) | payer OTHER ==
[~2017-03-19] VITALS: Ht 175.3 cm; Wt 97.1 kg
[~2017-03-19 08:20] MED LIST changes: +ACET-2267 PO; +APIX2.5T PO; +FERR325T24 PO; +FOLI1TAB24 PO; +LISI-552 PO; +LOPE2TAB34 PO; +MULT-851 PO
--- NOTE | 2017-03-19 08:55 | Diagnostic Imaging Report ---
Clinical indication: Patient found down at home. Patient had recent hospitalization has not been getting better since. Exam: Portable chest x-ray semi-upright view. Comparison: Chest x-ray dated 03/11/2017. Findings: There is interval progression of patchy consolidation in left lung base and moderate-sized area of consolidation in the medial right lung base region. There is continued increased lung markings throughout both lungs. There is blunting of both costophrenic angles again seen concerning for pleural effusion. Pulmonary vasculature and cardiac silhouette are within normal limits. There are hypertrophic spurs involving the thoracic spine. Impression: 1: Interval progression of bilateral lung infiltrate/pneumonia. 2: Stable suspected bilateral pleural effusions. Dictated by: Dictated on workstation # [id number]
[2017-03-19 08:56] LABS: BASOPHILS # (AUTO) 0.1 10^3/uL (0.0-0.1); BASOPHILS % (AUTO) 1 % (0-10); EOSINOPHILS % (AUTO) 0 % (0-10); HEMATOCRIT 28 % (40-54); HEMOGLOBIN 8.5 G/DL (13.3-17.7); LYMPHOCYTES % (AUTO) 7 % (12-44); MEAN CORPUSCULAR HEMOGLOBIN 26 PG (25-34); MEAN CORPUSCULAR HGB CONC 31 G/DL (32-36); MEAN CORPUSCULAR VOLUME 84 FL (80-99); MONOCYTES # (AUTO) 1.5 X 10^3 (0.0-1.0); MONOCYTES % (AUTO) 11 % (0-12); NEUTROPHILS # (AUTO) 11.9 X 10^3 (1.8-7.8); NEUTROPHILS % (AUTO) 82 % (42-75); PLATELET COUNT 480 10^3/uL (130-400); RED BLOOD COUNT 3.32 10^6/uL (4.35-5.85); RED CELL DISTRIBUTION WIDTH 22.4 % (10.0-14.5); WHITE BLOOD COUNT 14.4 10^3/uL (4.3-11.0)
--- NOTE | 2017-03-19 09:27 | ED General ---
General Chief Complaint: General Problems/Pain Stated Complaint: FALL Nursing Triage Note: TO ED PER EMS WAS HEARD BY [facility] CALLED. WHEN ARRIVAL WAS IN CHAIR,BUT FIRST RSPONDER REPORTS THAT HE WAS ON FLOOR. EMS REPORTS THAT NOTED CONGESTION. AERSOL TX GIVEN AND FINISHED IN ED. IS SUPPOSE TO BE ON HOSPICE Nursing Sepsis Screen: No Definite Risk Source of Information: Patient, EMS, Old Records History of Present Illness Time Seen by Provider: 09:23 Initial Comments The patient is an 86-year-old white male who was hospitalized here with pneumonia in the end of February. Had been recommended that he go to a fci however he refused and negotiated a deal with [facility] assistance for hospice and 8 hours per day of in home care. He apparently was heard moaning in his home this morning and the ambulance was summoned. His home was stated to be in the terrible state of disrepair. He is lethargic but arousable Timing/Duration: 12-24 Hours Allergies and Home Medications Allergies Coded Allergies: No Known Drug Allergies (Unverified , 03/05/17) Home Medications Acetaminophen 500 Mg Tablet, 1,000 MG PO TID, (Reported) TAKES 2 (500MG) TABLETS Insulin Aspart 300 Units/3 Ml Solution, 4 UNITS SQ AC, (Reported) Insulin Detemir 100 Unit/1 Ml Insuln.pen, 20 UNIT SQ HS, (Reported) Loperamide HCl 2 Mg Tablet, PO UD PRN for DIARRHEA, (Reported) Multivits-Minerals/FA/Lycopene 1 Each Tablet, 0.5 TAB PO BID, (Reported) Constitutional: see HPI Past Vmumtce-Ectjzx-Rkdjtj Hx Patient Social History Alcohol Use: Denies Use Recreational Drug Use: No Smoking Status: Never a Smoker Type Used: Cigarettes Former Smoker, Quit: Mar 02, 1984 Recent Foreign Travel: No Contact w/Someone Who Travel: No Recent Infectious Disease Expo: No Recent Hopitalizations: No Immunizations Up To Date Tetanus Booster (TDap): Unknown Date of Pneumonia Vaccine: Dec 14, 2016 Date of Influenza Vaccine: Dec 14, 2016 Seasonal Allergies Seasonal Allergies: No Surgeries 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) Surgeries: Adenoidectomy, Amputation, Orthopedic, Tonsillectomy Respiratory History of Respiratory Disorde: No Cardiovascular History of Cardiac Disorders: Yes Cardiac Disorders: Hypertension Neurological History of Neurological Disord: No Reproductive System Hx Reproductive Disorders: No Genitourinary History of Genitourinary Disor: No Gastrointestinal History of Gastrointestinal Di: No Musculoskeletal History of 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) Endocrine History of Endocrine Disorders: Yes Endocrine Disorders: Diabetes, Insulin dep HEENT History of HEENT Disorders: No Cancer History of Cancer: No Psychosocial History of Psychiatric Problem: No Integumentary History of Skin or Integumenta: No Blood Transfusions History of Blood Disorders: No Family Medical History Family Medial History: Cardiovascular disease 19 MOTHER Diabetes mellitus 19 MOTHER Myocardial infarction 19 MOTHER Physical Exam-Suspected Sepsis Physical Exam Vital Signs Vital Sign - Last 12Hours 03/19/17 08:20 Temp 99.0 Pulse 116 Resp 20 B/P (MAP) 137/69 (91) Capillary Refill : Less Than 3 Seconds Blood Pressure Mean: 91 General Appearance: Other (elderly lethargic male who responds briefly by opening his eyes when spoken to) Eyes: Bilateral Eye Normal Inspection HEENT: Other (tongue dry) Neck: Normal Inspection Respiratory: Other (shallow respirations) Cardiovascular: Regular Rate, Rhythm, No Edema, No Gallop, No JVD, No Murmur Gastrointestinal: Normal Bowel Sounds, Non Tender Back: Normal Inspection, No CVA Tenderness, No Vertebral Tenderness Extremity: Other (2+ pretibial edema) Neurologic/Psychiatric: Other (lethargic and does not answer questions) Skin: normal color Progress/Results/Core Measures Suspected Sepsis Recent Fever Within 48 Hours: No Infection Criteria Present: None New/Unexplained Altered Menta: No Sepsis Screen: No Definite Risk Sepsis Diagnosis: SIRS Temperature:99.0 Pulse: 116 Respiratory Rate: 20 Laboratory Tests 03/19/17 08:45: White Blood Count 14.4H Blood Pressure 137 /69 Mean: 91 Laboratory Tests 03/19/17 08:45: Platelet Count 480H 03/19/17 09:13: Creatinine 1.86H, Total Bilirubin 0.5 Results/Orders Lab Results Laboratory Tests Test 03/19/17 08:45 03/19/17 09:13 Range/Units White Blood Count 14.4 H 4.3-11.0 10^3/uL Red Blood Count 3.32 L 4.35-5.85 10^6/uL Hemoglobin 8.5 L 13.3-17.7 G/DL Hematocrit 28 L 40-54 % Mean Corpuscular Volume 84 80-99 FL Mean Corpuscular Hemoglobin 26 25-34 PG Mean Corpuscular Hemoglobin Concent 31 L 32-36 G/DL Red Cell Distribution Width 22.4 H 10.0-14.5 % Platelet Count 480 H 130-400 10^3/uL Mean Platelet Volume 12.0 H 7.4-10.4 FL Neutrophils (%) (Auto) 82 H 42-75 % Lymphocytes (%) (Auto) 7 L 12-44 % Monocytes (%) (Auto) 11 0-12 % Eosinophils (%) (Auto) 0 0-10 % Basophils (%) (Auto) 1 0-10 % Neutrophils # (Auto) 11.9 H 1.8-7.8 X 10^3 Lymphocytes # (Auto) 1.0 1.0-4.0 X 10^3 Monocytes # (Auto) 1.5 H 0.0-1.0 X 10^3 Eosinophils # (Auto) 0.0 0.0-0.3 10^3/uL Basophils # (Auto) 0.1 0.0-0.1 10^3/uL Neutrophils % (Manual) 81 % Lymphocytes % (Manual) 4 % Monocytes % (Manual) 9 % Eosinophils % (Manual) 0 % Basophils % (Manual) 0 % Band Neutrophils 6 % Anisocytosis MODERATE Sodium Level 141 135-145 MMOL/L Potassium Level 5.3 H 3.6-5.0 MMOL/L Chloride Level 107 98-107 MMOL/L Carbon Dioxide Level 22 21-32 MMOL/L Anion Gap 12 5-14 MMOL/L Blood Urea Nitrogen 32 H 7-18 MG/DL Creatinine 1.86 H 0.60-1.30 MG/DL Estimat Glomerular Filtration Rate 35 BUN/Creatinine Ratio 17 Glucose Level 144 H 70-105 MG/DL Calcium Level 8.5 8.5-10.1 MG/DL Total Bilirubin 0.5 0.1-1.0 MG/DL Aspartate Amino Transf (AST/SGOT) 30 5-34 U/L Alanine Aminotransferase (ALT/SGPT) 21 0-55 U/L Alkaline Phosphatase 31 L 40-136 U/L Total Protein 7.2 6.4-8.2 GM/DL Albumin 3.0 L 3.2-4.5 GM/DL My Orders Orders - BENJY CAVANAUGH MD Cbc With Automated Diff (03/19/17 08:26) Comprehensive Metabolic Panel (03/19/17 08:26) Chest 1 View, Ap/Pa Only (03/19/17 08:26) Manual Differential (03/19/17 08:45) BNP (03/19/17 09:08) Vital Signs/I&O Vital Sign - Last 12Hours 03/19/17 08:20 Temp 99.0 Pulse 116 Resp 20 B/P (MAP) 137/69 (91) Capillary Refill : Less Than 3 Seconds Blood Pressure Mean: 91 Departure Communication (Admissions) Progress Notes [id number] Garduno. She reported that she had been informed by [facility] that he was to be admitted to [facility] today. I raises the question as he had apparently repeat he will his hospice status by coming here with her we were obligated to treat his pneumonia. She then came to the emergency room evaluated the situation. The patient does not wish to be hospitalized again. [facility] has agreed to take him in his present state of affairs. We agreed to give 5 days of IM Rocephin and transferred him to the health [facility] rehabilitation facility. Impression Impression: Primary Impression: right lower lobe pneumonia Disposition: ([facility]) Condition: Stable/Unchanged Departure-Patient Inst. Decision time for Depature: 10:07 Referrals: DEJAH RIVERA MD (PCP/Family) Primary Care Physician BENJY CAVANAUGH MD Mar 19, 2017 09:27
[2017-03-19 09:32] LABS: NEUTROPHILS % (MANUAL) 81 %
[2017-03-19 09:33] LABS: ANISOCYTOSIS MODERATE; BAND NEUTROPHILS 6 %; BASOPHILS % (MANUAL) 0 %; EOSINOPHILS % (MANUAL) 0 %; LYMPHOCYTES % (MANUAL) 4 %; MONOCYTES % (MANUAL) 9 %
[2017-03-19 09:45] LABS: BILIRUBIN,TOTAL 0.5 MG/DL (0.1-1.0); CALCIUM 8.5 MG/DL (8.5-10.1); CREATININE SERUM 1.86 MG/DL (0.60-1.30); POTASSIUM 5.3 MMOL/L (3.6-5.0); TOTAL PROTEIN 7.2 GM/DL (6.4-8.2)
[2017-03-19] MEDS ORDERED: cefTRIAXone INJECTION 1,000 MG in NS (IVPB) 50 ML IV ONE (10:15)
[2017-03-19 11:06] VITALS: BP 118/64
--- OUTSIDE RECORDS SUMMARY | 2017-03-20 09:14 | XMS REPORT | Continuity of Care Document ---
Author Author [facility] Organization [facility] Address Unknown Phone Unavailable Allergies Active Description Code Type Severity Reaction Onset Reported/Identified Relationship to Patient Clinical Status Yes No Known Drug Allergies [id number] Drug Allergy Unknown N/A 03/05/2017 Medications There is no data. 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) Procedures Code Description Performed By Performed On [id number] DETACHMENT AT RIGHT 3RD TOE, COMPLETE, O [...] urinalysis with reflex to culture YES NRG Bacterial urine culture - 03/05/17 12:40 Bacterial urine culture [id number] NRG COLONY COUNT >100,000/ML NRG FTX;REPORTABLE SENSITIVITY REPORTED 03/07/17 8:00 NR Bacterial susceptibility panel - 03/05/17 12:40 Gentamicin susceptibility test by minimum inhibitory concentration < = NRG Trimethoprim/sulfamethoxazole susceptibility test by minimum inhibitoryconcentration S NRG Ampicillin susceptibility test by minimum inhibitory concentration > = NRG Tobramycin susceptibility test by minimum inhibitory concentration < = NRG Cefazolin susceptibility test by minimum inhibitory concentration < = NRG Ceftriaxone susceptibility test by minimum inhibitory concentration <= NRG Ampicillin/sulbactam susceptibility test by minimum inhibitory concentration S NRG Piperacillin/tazobactam susceptibility test by minimum inhibitory concentration S NRG Ciprofloxacin susceptibility test by minimum inhibitory concentration <= NRG Meropenem susceptibility test by minimum inhibitory concentration < = NRG Nitrofurantoin susceptibility test by minimum inhibitory concentration <= NRG Aztreonam susceptibility test by minimum inhibitory concentration < = NRG Extended spectrum beta lactamase (ESBL) producing bacteria susceptibility test by minimum inhibitory concentration - NRG Sputum Gram stain - 03/05/17 16:45 GRAM STAIN SPUTUM AND MIXED BACTERIAL ASHUTOSH NRG Bacterial sputum culture - 03/05/17 16:45 Bacterial sputum culture NORMAL NRG Blood lactic acid measurement (moles/volume) - 03/05/17 17:35 Blood lactic acid measurement (moles/volume) 0.76 mmol/L 0.50-2.00 Complete blood count (CBC) with automated white blood cell (WBC) differential - 03/06/17 07:17 Blood leukocytes automated count (number/volume) 15.9 10*3/uL 4.3-11.0 Blood erythrocytes automated count (number/volume) 3.22 10*6/uL 4.35-5.85 Venous blood hemoglobin measurement (mass/volume) 8.2 g/dL 13.3-17.7 Blood hematocrit (volume fraction) 26 % 40-54 Automated erythrocyte mean corpuscular volume 81 [foz_us] 80-99 Automated erythrocyte mean corpuscular hemoglobin (mass per erythrocyte) 26 pg 25-34 Automated erythrocyte mean corpuscular hemoglobin concentration measurement ( mass/volume) 31 g/dL 32-36 Automated erythrocyte distribution width ratio 21.4 % 10.0-14.5 Automated blood platelet count (count/volume) 245 10*3/uL 130-400 Automated blood platelet mean volume measurement 12.5 [foz_us] 7.4-10.4 Automated blood neutrophils/100 leukocytes 85 % 42-75 Automated blood lymphocytes/100 leukocytes 6 % 12-44 Blood monocytes/100 leukocytes 9 % 0-12 Automated blood eosinophils/100 leukocytes 0 % 0-10 Automated blood basophils/100 leukocytes 1 % 0-10 Blood neutrophils automated count (number/volume) 13.6 10*3 1.8-7.8 Blood lymphocytes automated count (number/volume) 0.9 10*3 1.0-4.0 Blood monocytes automated count (number/volume) 1.4 10*3 0.0-1.0 Automated eosinophil count 0.0 10*3/uL 0.0-0.3 Automated blood basophil count (count/volume) 0.1 10*3/uL 0.0-0.1 Blood blood smear finding identification by light microscopy YES [facility] Comprehensive metabolic panel - 03/06/17 07:17 Serum or plasma sodium measurement (moles/volume) 132 mmol/L 135-145 Serum or plasma potassium measurement (moles/volume) 3.5 mmol/L 3.6-5.0 Serum or plasma chloride measurement (moles/volume) 105 mmol/L 98-107 Carbon dioxide 14 mmol/L 21-32 Serum or plasma anion gap determination (moles/volume) 13 mmol/L 5-14 Serum or plasma urea nitrogen measurement (mass/volume) 58 mg/dL 7-18 Serum or plasma creatinine measurement (mass/volume) 2.70 mg/dL 0.60-1.30 Serum or plasma urea nitrogen/creatinine mass ratio 21 [facility] Serum or plasma creatinine measurement with calculation of estimated glomerular filtration rate 23 [facility] Serum or plasma glucose measurement (mass/volume) 393 mg/dL 70-105 Serum or plasma calcium measurement (mass/volume) 7.1 mg/dL 8.5-10.1 Serum or plasma total bilirubin measurement (mass/volume) 0.5 mg/dL 0.1-1.0 Serum or plasma alkaline phosphatase measurement (enzymatic activity/volume) 28 U/L 40-136 Serum or plasma aspartate aminotransferase measurement (enzymatic activity/ volume) 30 U/L 5-34 Serum or plasma alanine aminotransferase measurement (enzymatic activity/volume ) 31 U/L 0-55 Serum or plasma protein measurement (mass/volume) 6.0 g/dL 6.4-8.2 Serum or plasma albumin measurement (mass/volume) 2.9 g/dL 3.2-4.5 Fibrin D-dimer FEU measurement in platelet poor plasma (mass/volume) - 07:17 Fibrin D-dimer FEU measurement in platelet poor plasma (mass/volume) 5.41 ug/mL 0.00-0.49 Arterial blood gas measurement - 03/06/17 12:45 Blood pCO2 27 mm[Hg] 35-45 Blood pO2 96 mm[Hg] 79-93 Arterial blood bicarbonate measurement (moles/volume) 14 mmol/L 23-27 Arterial blood base excess by calculation -10.7 mmol/L - 2.5-2.5 Arterial blood oxygen saturation measurement 98 % 94-100 * Inhaled oxygen flow rate 40% NRG Arterial blood pH measurement with patient temperature correction 7.34 7.37-7.43 Arterial blood carbon dioxide, total measurement (moles/volume) 14.4 mmol/L 21.0-31.0 Body site R RAD NRG Assessment of wrist artery patency prior to arterial puncture YES- POS NRG Setting of ventilation mode NO NRG Measurement of body temperature 101.4 NRG Blood lactic acid measurement (moles/volume) - 03/06/17 13:52 Blood lactic acid measurement (moles/volume) 1.61 mmol/L 0.50-2.00 Capillary blood glucose measurement by glucometer (mass/volume) - 03/06/17 16: 51 Capillary blood glucose measurement by glucometer (mass/volume) 247 mg/dL 70-110 Capillary blood glucose measurement by glucometer (mass/volume) - 03/06/17 22: 29 Capillary blood glucose measurement by glucometer (mass/volume) 226 mg/dL 70-110 Stool occult blood screen - 03/07/17 02:25 Stool gastrointestinal hemoglobin detection NEGATIVE NEGATIVE Complete blood count (CBC) with automated white blood cell (WBC) differential - 03/07/17 03:56 Blood leukocytes automated count (number/volume) 20.6 10*3/uL 4.3-11.0 Blood erythrocytes automated count (number/volume) 3.18 10*6/uL 4.35-5.85 Venous blood hemoglobin measurement (mass/volume) 8.0 g/dL 13.3-17.7 Blood hematocrit (volume fraction) 25 % 40-54 Automated erythrocyte mean corpuscular volume 80 [foz_us] 80-99 Automated erythrocyte mean corpuscular hemoglobin (mass per erythrocyte) 25 pg 25-34 Automated erythrocyte mean corpuscular hemoglobin concentration measurement ( mass/volume) 32 g/dL 32-36 Automated erythrocyte distribution width ratio 21.3 % 10.0-14.5 Automated blood platelet count (count/volume) 270 10*3/uL 130-400 Automated blood platelet mean volume measurement 12.6 [foz_us] 7.4-10.4 Automated blood neutrophils/100 leukocytes 86 % 42-75 Automated blood lymphocytes/100 leukocytes 3 % 12-44 Blood monocytes/100 leukocytes 10 % 0-12 Automated blood eosinophils/100 leukocytes 0 % 0-10 Automated blood basophils/100 leukocytes 0 % 0-10 Blood neutrophils automated count (number/volume) 17.8 10*3 1.8-7.8 Blood lymphocytes automated count (number/volume) 0.7 10*3 1.0-4.0 Blood monocytes automated count (number/volume) 2.1 10*3 0.0-1.0 Automated eosinophil count 0.0 10*3/uL 0.0-0.3 Automated blood basophil count (count/volume) 0.1 10*3/uL 0.0-0.1 Comprehensive metabolic panel - 03/07/17 03:56 Serum or plasma sodium measurement (moles/volume) 135 mmol/L 135-145 Serum or plasma potassium measurement (moles/volume) 3.8 mmol/L 3.6-5.0 Serum or plasma chloride measurement (moles/volume) 108 mmol/L 98-107 Carbon dioxide 13 mmol/L 21-32 Serum or plasma anion gap determination (moles/volume) 14 mmol/L 5-14 Serum or plasma urea nitrogen measurement (mass/volume) 51 mg/dL 7-18 Serum or plasma creatinine measurement (mass/volume) 2.90 mg/dL 0.60-1.30 Serum or plasma urea nitrogen/creatinine mass ratio 18 NRG Serum or plasma creatinine measurement with calculation of estimated glomerular filtration rate 21 NRG Serum or plasma glucose measurement (mass/volume) 194 mg/dL 70-105 Serum or plasma calcium measurement (mass/volume) 7.3 mg/dL 8.5-10.1 Serum or plasma total bilirubin measurement (mass/volume) 0.7 mg/dL 0.1-1.0 Serum or plasma alkaline phosphatase measurement (enzymatic activity/volume) 36 U/L 40-136 Serum or plasma aspartate aminotransferase measurement (enzymatic activity/ volume) 31 U/L 5-34 Serum or plasma alanine aminotransferase measurement (enzymatic activity/volume ) 26 U/L 0-55 Serum or plasma protein measurement (mass/volume) 6.1 g/dL 6.4-8.2 Serum or plasma albumin measurement (mass/volume) 2.7 g/dL 3.2-4.5 Magnesium - 03/07/17 03:56 Magnesium 2.1 mg/dL 1.8-2.4 Blood manual differential performed detection - 03/07/17 03:56 Blood monocytes/100 leukocytes 6 % NRG Manual blood segmented neutrophils/100 leukocytes 89 % NRG Blood band neutrophils/100 leukocytes 4 % NRG Manual blood lymphocytes/100 leukocytes 1 % NRG Manual eosinophils/100 leukocytes in nose 0 % NRG Manual blood basophils/100 leukocytes 0 % NRG Blood polychromasia detection by light microscopy SLIGHT NRG Blood anisocytosis detection by light microscopy MODERATE NRG Blood macrocytes detection by light microscopy MODERATE NRG Blood ovalocytes detection by light microscopy SLIGHT NRG Blood poikilocytosis detection by light microscopy SLIGHT NRG Blood hypochromia detection by light microscopy MODERATE NRG Blood microcytes detection by light microscopy SLIGHT NRG Blood oma cells detection by light microscopy SLIGHT NRG Blood dacrocytes detection by light microscopy SLIGHT NRG THYROID STIMULATING HORMONE - 03/07/17 03:56 THYROID STIMULATING HORMONE 2.17 u[iU]/mL 0.35-4.94 Capillary blood glucose measurement by glucometer (mass/volume) - 03/07/17 05: 31 Capillary blood glucose measurement by glucometer (mass/volume) 217 mg/dL 70-110 Capillary blood glucose measurement by glucometer (mass/volume) - 03/07/17 11: 57 Capillary blood glucose measurement by glucometer (mass/volume) 232 mg/dL 70-110 Capillary blood glucose measurement by glucometer (mass/volume) - 03/07/17 16: 03 Capillary blood glucose measurement by glucometer (mass/volume) 230 mg/dL 70-110 Whole blood basic metabolic panel - 03/07/17 18:09 Serum or plasma sodium measurement (moles/volume) 137 mmol/L 135-145 Serum or plasma potassium measurement (moles/volume) 3.6 mmol/L 3.6-5.0 Serum or plasma chloride measurement (moles/volume) 110 mmol/L 98-107 Carbon dioxide 14 mmol/L 21-32 Serum or plasma anion gap determination (moles/volume) 13 mmol/L 5-14 Serum or plasma urea nitrogen measurement (mass/volume) 48 mg/dL 7-18 Serum or plasma creatinine measurement (mass/volume) 2.68 mg/dL 0.60-1.30 Serum or plasma urea nitrogen/creatinine mass ratio 18 NRG Serum or plasma creatinine measurement with calculation of estimated glomerular filtration rate 23 NRG Serum or plasma glucose measurement (mass/volume) 172 mg/dL 70-105 Serum or plasma calcium measurement (mass/volume) 7.4 mg/dL 8.5-10.1 Capillary blood glucose measurement by glucometer (mass/volume) - 03/07/17 20: 23 Capillary blood glucose measurement by glucometer (mass/volume) 204 mg/dL 70-110 Automated blood complete blood count (hemogram) panel - 03/08/17 03:54 Blood leukocytes automated count (number/volume) 14.6 10*3/uL 4.3-11.0 Blood erythrocytes automated count (number/volume) 3.06 10*6/uL 4.35-5.85 Venous blood hemoglobin measurement (mass/volume) 7.7 g/dL 13.3-17.7 Blood hematocrit (volume fraction) 24 % 40-54 Automated erythrocyte mean corpuscular volume 80 [foz_us] 80-99 Automated erythrocyte mean corpuscular hemoglobin (mass per erythrocyte) 25 pg 25-34 Automated erythrocyte mean corpuscular hemoglobin concentration measurement ( mass/volume) 32 g/dL 32-36 Automated erythrocyte distribution width ratio 21.6 % 10.0-14.5 Automated blood platelet count (count/volume) 295 10*3/uL 130-400 Automated blood platelet mean volume measurement 13.1 [foz_us] 7.4-10.4 Whole blood basic metabolic panel - 03/08/17 03:54 Serum or plasma sodium measurement (moles/volume) 136 mmol/L 135-145 Serum or plasma potassium measurement (moles/volume) 3.6 mmol/L 3.6-5.0 Serum or plasma chloride measurement (moles/volume) 112 mmol/L 98-107 Carbon dioxide 11 mmol/L 21-32 Serum or plasma anion gap determination (moles/volume) 13 mmol/L 5-14 Serum or plasma urea nitrogen measurement (mass/volume) 46 mg/dL 7-18 Serum or plasma creatinine measurement (mass/volume) 2.46 mg/dL 0.60-1.30 Serum or plasma urea nitrogen/creatinine mass ratio 19 NRG Serum or plasma creatinine measurement with calculation of estimated glomerular filtration rate 25 NRG Serum or plasma glucose measurement (mass/volume) 223 mg/dL 70-105 Serum or plasma calcium measurement (mass/volume) 7.1 mg/dL 8.5-10.1 Capillary blood glucose measurement by glucometer (mass/volume) - 03/08/17 06: 09 Capillary blood glucose measurement by glucometer (mass/volume) 233 mg/dL 70-110 RED CELLS LEUKO REDUCED AS1 - 03/08/17 09:54 RED CELLS LEUKO REDUCED AS1 TRANSFUSED 03/08/17 1654 [facility] Blood type T Indirect antibody screen panel - 03/08/17 09:54 ABO+Rh group OP [facility] Transfusion band number [id number] [facility] Blood group antibody screen NEGATIVE [facility] Capillary blood glucose measurement by glucometer (mass/volume) - 03/08/17 11: 24 Capillary blood glucose measurement by glucometer (mass/volume) 167 mg/dL 70-110 Capillary blood glucose measurement by glucometer (mass/volume) - 03/08/17 16: 21 Capillary blood glucose measurement by glucometer (mass/volume) 169 mg/dL 70-110 Capillary blood glucose measurement by glucometer (mass/volume) - 03/08/17 22: 02 Capillary blood glucose measurement by glucometer (mass/volume) 256 mg/dL 70-110 Whole blood hemoglobin and hematocrit panel - 03/08/17 23:01 Venous blood hemoglobin measurement (mass/volume) 9.8 g/dL 13.3-17.7 Blood hematocrit (volume fraction) 30 % 40-54 Whole blood basic metabolic panel - 03/08/17 23:01 Serum or plasma sodium measurement (moles/volume) 138 mmol/L 135-145 Serum or plasma potassium measurement (moles/volume) 3.5 mmol/L 3.6-5.0 Serum or plasma chloride measurement (moles/volume) 112 mmol/L 98-107 Carbon dioxide 13 mmol/L 21-32 Serum or plasma anion gap determination (moles/volume) 13 mmol/L 5-14 Serum or plasma urea nitrogen measurement (mass/volume) 43 mg/dL 7-18 Serum or plasma creatinine measurement (mass/volume) 2.66 mg/dL 0.60-1.30 Serum or plasma urea nitrogen/creatinine mass ratio 16 NRG Serum or plasma creatinine measurement with calculation of estimated glomerular filtration rate 23 NRG Serum or plasma glucose measurement (mass/volume) 282 mg/dL 70-105 Serum or plasma calcium measurement (mass/volume) 7.2 mg/dL 8.5-10.1 Automated blood complete blood count (hemogram) panel - 03/09/17 04:35 Blood leukocytes automated count (number/volume) 11.4 10*3/uL 4.3-11.0 Blood erythrocytes automated count (number/volume) 3.68 10*6/uL 4.35-5.85 Venous blood hemoglobin measurement (mass/volume) 9.6 g/dL 13.3-17.7 Blood hematocrit (volume fraction) 29 % 40-54 Automated erythrocyte mean corpuscular volume 79 [foz_us] 80-99 Automated erythrocyte mean corpuscular hemoglobin (mass per erythrocyte) 26 pg 25-34 Automated erythrocyte mean corpuscular hemoglobin concentration measurement ( mass/volume) 33 g/dL 32-36 Automated erythrocyte distribution width ratio 20.3 % 10.0-14.5 Automated blood platelet count (count/volume) 393 10*3/uL 130-400 Automated blood platelet mean volume measurement 12.3 [foz_us] 7.4-10.4 Whole blood basic metabolic panel - 03/09/17 04:35 Serum or plasma sodium measurement (moles/volume) 139 mmol/L 135-145 Serum or plasma potassium measurement (moles/volume) 3.4 mmol/L 3.6-5.0 Serum or plasma chloride measurement (moles/volume) 112 mmol/L 98-107 Carbon dioxide 14 mmol/L 21-32 Serum or plasma anion gap determination (moles/volume) 13 mmol/L 5-14 Serum or plasma urea nitrogen measurement (mass/volume) 40 mg/dL 7-18 Serum or plasma creatinine measurement (mass/volume) 2.57 mg/dL 0.60-1.30 Serum or plasma urea nitrogen/creatinine mass ratio 16 NRG Serum or plasma creatinine measurement with calculation of estimated glomerular filtration rate 24 NRG Serum or plasma glucose measurement (mass/volume) 180 mg/dL 70-105 Serum or plasma calcium measurement (mass/volume) 7.2 mg/dL 8.5-10.1 Capillary blood glucose measurement by glucometer (mass/volume) - 03/09/17 10: 53 Capillary blood glucose measurement by glucometer (mass/volume) 192 mg/dL 70-110 Influenza virus A and B antigen detection - 03/09/17 11:44 FLU RESULT NEGATIVE FOR INFLUENZA A AND B ANTIGENS BY IA NRG Capillary blood glucose measurement by glucometer (mass/volume) - 03/09/17 15: 43 Capillary blood glucose measurement by glucometer (mass/volume) 233 mg/dL 70-110 Capillary blood glucose measurement by glucometer (mass/volume) - 03/09/17 20: 35 Capillary blood glucose measurement by glucometer (mass/volume) 216 mg/dL 70-110 Capillary blood glucose measurement by glucometer (mass/volume) - 03/10/17 04: 41 Capillary blood glucose measurement by glucometer (mass/volume) 148 mg/dL 70-110 Automated blood complete blood count (hemogram) panel - 03/10/17 05:39 Blood leukocytes automated count (number/volume) 10.7 10*3/uL 4.3-11.0 Blood erythrocytes automated count (number/volume) 3.57 10*6/uL 4.35-5.85 Venous blood hemoglobin measurement (mass/volume) 9.3 g/dL 13.3-17.7 Blood hematocrit (volume fraction) 29 % 40-54 Automated erythrocyte mean corpuscular volume 81 [foz_us] 80-99 Automated erythrocyte mean corpuscular hemoglobin (mass per erythrocyte) 26 pg 25-34 Automated erythrocyte mean corpuscular hemoglobin concentration measurement ( mass/volume) 32 g/dL 32-36 Automated erythrocyte distribution width ratio 20.8 % 10.0-14.5 Automated blood platelet count (count/volume) 401 10*3/uL 130-400 Automated blood platelet mean volume measurement 11.7 [foz_us] 7.4-10.4 Whole blood basic metabolic panel - 03/10/17 05:39 Serum or plasma sodium measurement (moles/volume) 141 mmol/L 135-145 Serum or plasma potassium measurement (moles/volume) 3.9 mmol/L 3.6-5.0 Serum or plasma chloride measurement (moles/volume) 115 mmol/L 98-107 Carbon dioxide 14 mmol/L 21-32 Serum or plasma anion gap determination (moles/volume) 12 mmol/L 5-14 Serum or plasma urea nitrogen measurement (mass/volume) 35 mg/dL 7-18 Serum or plasma creatinine measurement (mass/volume) 2.40 mg/dL 0.60-1.30 Serum or plasma urea nitrogen/creatinine mass ratio 15 NRG Serum or plasma creatinine measurement with calculation of estimated glomerular filtration rate 26 NRG Serum or plasma glucose measurement (mass/volume) 165 mg/dL 70-105 Serum or plasma calcium measurement (mass/volume) 7.2 mg/dL 8.5-10.1 Capillary blood glucose measurement by glucometer (mass/volume) - 03/10/17 11: 51 Capillary blood glucose measurement by glucometer (mass/volume) 219 mg/dL 70-110 Capillary blood glucose measurement by glucometer (mass/volume) - 03/10/17 16: 13 Capillary blood glucose measurement by glucometer (mass/volume) 174 mg/dL 70-110 Capillary blood glucose measurement by glucometer (mass/volume) - 03/10/17 20: 20 Capillary blood glucose measurement by glucometer (mass/volume) 260 mg/dL 70-110 Automated blood complete blood count (hemogram) panel - 03/11/17 05:28 Blood leukocytes automated count (number/volume) 12.3 10*3/uL 4.3-11.0 Blood erythrocytes automated count (number/volume) 3.75 10*6/uL 4.35-5.85 Venous blood hemoglobin measurement (mass/volume) 9.8 g/dL 13.3-17.7 Blood hematocrit (volume fraction) 31 % 40-54 Automated erythrocyte mean corpuscular volume 82 [foz_us] 80-99 Automated erythrocyte mean corpuscular hemoglobin (mass per erythrocyte) 26 pg 25-34 Automated erythrocyte mean corpuscular hemoglobin concentration measurement ( mass/volume) 32 g/dL 32-36 Automated erythrocyte distribution width ratio 21.3 % 10.0-14.5 Automated blood platelet count (count/volume) 514 10*3/uL 130-400 Automated blood platelet mean volume measurement 11.6 [foz_us] 7.4-10.4 Whole blood basic metabolic panel - 03/11/17 05:28 Serum or plasma sodium measurement (moles/volume) 140 mmol/L 135-145 Serum or plasma potassium measurement (moles/volume) 3.8 mmol/L 3.6-5.0 Serum or plasma chloride measurement (moles/volume) 112 mmol/L 98-107 Carbon dioxide 16 mmol/L 21-32 Serum or plasma anion gap determination (moles/volume) 12 mmol/L 5-14 Serum or plasma urea nitrogen measurement (mass/volume) 30 mg/dL 7-18 Serum or plasma creatinine measurement (mass/volume) 2.28 mg/dL 0.60-1.30 Serum or plasma urea nitrogen/creatinine mass ratio 13 NRG Serum or plasma creatinine measurement with calculation of estimated glomerular filtration rate 27 NRG Serum or plasma glucose measurement (mass/volume) 161 mg/dL 70-105 Serum or plasma calcium measurement (mass/volume) 7.7 mg/dL 8.5-10.1 Capillary blood glucose measurement by glucometer (mass/volume) - 03/11/17 11: 16 Capillary blood glucose measurement by glucometer (mass/volume) 265 mg/dL 70-110 Capillary blood glucose measurement by glucometer (mass/volume) - 03/11/17 16: 01 Capillary blood glucose measurement by glucometer (mass/volume) 140 mg/dL 70-110 Capillary blood glucose measurement by glucometer (mass/volume) - 03/11/17 20: 20 Capillary blood glucose measurement by glucometer (mass/volume) 229 mg/dL 70-110 Automated blood complete blood count (hemogram) panel - 03/12/17 05:38 Blood leukocytes automated count (number/volume) 11.6 10*3/uL 4.3-11.0 Blood erythrocytes automated count (number/volume) 3.58 10*6/uL 4.35-5.85 Venous blood hemoglobin measurement (mass/volume) 9.4 g/dL 13.3-17.7 Blood hematocrit (volume fraction) 29 % 40-54 Automated erythrocyte mean corpuscular volume 82 [foz_us] 80-99 Automated erythrocyte mean corpuscular hemoglobin (mass per erythrocyte) 26 pg 25-34 Automated erythrocyte mean corpuscular hemoglobin concentration measurement ( mass/volume) 32 g/dL 32-36 Automated erythrocyte distribution width ratio 21.1 % 10.0-14.5 Automated blood platelet count (count/volume) 463 10*3/uL 130-400 Automated blood platelet mean volume measurement 11.7 [foz_us] 7.4-10.4 Whole blood basic metabolic panel - 03/12/17 05:38 Serum or plasma sodium measurement (moles/volume) 140 mmol/L 135-145 Serum or plasma potassium measurement (moles/volume) 3.8 mmol/L 3.6-5.0 Serum or plasma chloride measurement (moles/volume) 112 mmol/L 98-107 Carbon dioxide 16 mmol/L 21-32 Serum or plasma anion gap determination (moles/volume) 12 mmol/L 5-14 Serum or plasma urea nitrogen measurement (mass/volume) 31 mg/dL 7-18 Serum or plasma creatinine measurement (mass/volume) 2.11 mg/dL 0.60-1.30 Serum or plasma urea nitrogen/creatinine mass ratio 15 NRG Serum or plasma creatinine measurement with calculation of estimated glomerular filtration rate 30 NRG Serum or plasma glucose measurement (mass/volume) 169 mg/dL 70-105 Serum or plasma calcium measurement (mass/volume) 7.7 mg/dL 8.5-10.1 Capillary blood glucose measurement by glucometer (mass/volume) - 03/12/17 11: 20 Capillary blood glucose measurement by glucometer (mass/volume) 273 mg/dL 70-110 Complete blood count (CBC) with automated white blood cell (WBC) differential - 03/19/17 08:45 Blood leukocytes automated count (number/volume) 14.4 10*3/uL 4.3-11.0 Blood erythrocytes automated count (number/volume) 3.32 10*6/uL 4.35-5.85 Venous blood hemoglobin measurement (mass/volume) 8.5 g/dL 13.3-17.7 Blood hematocrit (volume fraction) 28 % 40-54 Automated erythrocyte mean corpuscular volume 84 [foz_us] 80-99 Automated erythrocyte mean corpuscular hemoglobin (mass per erythrocyte) 26 pg 25-34 Automated erythrocyte mean corpuscular hemoglobin concentration measurement ( mass/volume) 31 g/dL 32-36 Automated erythrocyte distribution width ratio 22.4 % 10.0-14.5 Automated blood platelet count (count/volume) 480 10*3/uL 130-400 Automated blood platelet mean volume measurement 12.0 [[facility]_us] 7.4-10.4 Automated blood neutrophils/100 leukocytes 82 % 42-75 Automated blood lymphocytes/100 leukocytes 7 % 12-44 Blood monocytes/100 leukocytes 11 % 0-12 Automated blood eosinophils/100 leukocytes 0 % 0-10 Automated blood basophils/100 leukocytes 1 % 0-10 Blood neutrophils automated count (number/volume) 11.9 10*3 1.8-7.8 Blood lymphocytes automated count (number/volume) 1.0 10*3 1.0-4.0 Blood monocytes automated count (number/volume) 1.5 10*3 0.0-1.0 Automated eosinophil count 0.0 10*3/uL 0.0-0.3 Automated blood basophil count (count/volume) 0.1 10*3/uL 0.0-0.1 Blood manual differential performed detection - 03/19/17 08:45 Blood monocytes/100 leukocytes 9 % NR Manual blood segmented neutrophils/100 leukocytes 81 % NRG Blood band neutrophils/100 leukocytes 6 % NRG Manual blood lymphocytes/100 leukocytes 4 % NRG Manual eosinophils/100 leukocytes in nose 0 % NRG Manual blood basophils/100 leukocytes 0 % NRG Blood anisocytosis detection by light microscopy [facility] Comprehensive metabolic panel - 03/19/17 09:13 Serum or plasma sodium measurement (moles/volume) 141 mmol/L 135-145 Serum or plasma potassium measurement (moles/volume) 5.3 mmol/L 3.6-5.0 Serum or plasma chloride measurement (moles/volume) 107 mmol/L 98-107 Carbon dioxide 22 mmol/L 21-32 Serum or plasma anion gap determination (moles/volume) 12 mmol/L 5-14 Serum or plasma urea nitrogen measurement (mass/volume) 32 mg/dL 7-18 Serum or plasma creatinine measurement (mass/volume) 1.86 mg/dL 0.60-1.30 Serum or plasma urea nitrogen/creatinine mass ratio 17 NRG Serum or plasma creatinine measurement with calculation of estimated glomerular filtration rate 35 NRG Serum or plasma glucose measurement (mass/volume) 144 mg/dL 70-105 Serum or plasma calcium measurement (mass/volume) 8.5 mg/dL 8.5-10.1 Serum or plasma total bilirubin measurement (mass/volume) 0.5 mg/dL 0.1-1.0 Serum or plasma alkaline phosphatase measurement (enzymatic activity/volume) 31 U/L 40-136 Serum or plasma aspartate aminotransferase measurement (enzymatic activity/ volume) 30 U/L 5-34 Serum or plasma alanine aminotransferase measurement (enzymatic activity/volume ) 21 U/L 0-55 Serum or plasma protein measurement (mass/volume) 7.2 g/dL 6.4-8.2 Serum or plasma albumin measurement (mass/volume) 3.0 g/dL 3.2-4.5 Serum or plasma lithium measurement (moles/volume) - 03/19/17 09:13 BNP level 256.3 pg/mL <100.0 Encounters ACCT No. Visit Date/Time Discharge Status Pt. Type Provider Facility Loc./Unit Complaint [id number] 09/19/2015 08:59:00 09/19/2015 12:00:00 DIS Outpatient GODFREY CAIN MD [facility] WOUND[facility] [id number] 07/30/2015 10:18:00 08/06/2015 14:05:00 DIS Inpatient BENJY CAVANAUGH MD [facility] 4TH CELLULITIS R FOOT/LEG; SINUS TACHYCARDIA [id number] 03/19/2017 08:58:00 Document Registration [id number] 03/05/2017 13:35:00 ACT Inpatient ELLE MARTIN DO [facility] 4TH PNEUMONIA;DEHYDRATION;ANEMIA;SEPSIS
== END 2017-03-19 11:14 | disposition home or self-care (01) ==
LOC: EDUNIT# 08:20 → ER 08:22
DX: J18.1 Lobar pneumonia, unspecified organism (principal); I10 Essential (primary) hypertension; E11.9 Type 2 diabetes mellitus without complications; Z82.49 Family history of ischemic heart disease and other diseases of the circulatory system; Z79.4 Long term (current) use of insulin; Z87.891 Personal history of nicotine dependence; Z89.411 Acquired absence of right great toe; Z90.89 Acquired absence of other organs
CPT/HCPCS: 36415; 71045; 80053; 83880; 85007; 85027; 96374; 99281